=== PATIENT | male | born 1930 | race Caucasian/White ===

== ENCOUNTER 2016-10-14 12:03 | Inpatient (IN) | payer MEDICARE, BC ==
[~2016-10-14] VITALS: Ht 162.6 cm; Wt 83.8 kg
--- NOTE | ~2016-10-14 | HEMODYNAMI ---
PATIENT:MELANIE BARAJAS MEDICAL RECORD: [id number] : [birth year] LOCATION:[facility] D.2122 ADMISSION DATE: 10/14/16 Generatedon:10/15/201613:47 Patient name: MELANIE BARAJAS Patient #: [id number] SSN: DO B: 1930 Date of study: 10/15/2016 Page: Of Hemodynamic Procedure Report Patient Data Patient Demographics Procedure consent was obtained First Name: MELANIE Gender: Male Last Name: KARL : 1930 [facility] Initial: SALOMÓN Age: 86 year(s) Patient #: [id number] Race: Unknown Additional ID: [id number] Contact details [address]: [address] [place] [address] State: [place] City: [place] Zip code: [address] Past Medical History Allergies Allergen Reaction Date Comments Reported Other allergy 10/15/2016 see chart Admission Admission Data Admission Date: 10/14/2016 Admission Time: 12:03 Room #: 2122 Procedure Procedure Types Cath Procedure Diagnostic Procedure LHC LHC w/Coronaries w/Grafts PCI Procedure SVG-BMS/SAVANNAH Initial Miscellaneous Procedures Moderate Sedation up to 15 minutes Procedure Description Procedure Date Procedure Date: 10/15/2016 Procedure Start Time: 13:10 Procedure End Time: 13:43 Procedure Staff Name Function Fabián Villaseñor MD Performing Physician Genoveva Valdes RT Scrub Kirsten Greene RN Nurse Loly Rhodes RT Monitor Procedure Data Cath Procedure Fluoroscopy Diagnostic fluoroscopy Total fluoroscopy Time: time: 12.9 min 12.9 min Diagnostic fluoroscopy Total fluoroscopy dose: dose: 1903 mGy 1903 mGy Contrast Material Contrast Material Type Amount (ml) Isovue 300 158 Entry Location Entry Primary Successful Side Size Upsize Upsize Entry Closure Succes sful Closure Location (Fr) 1 (Fr) 2 (Fr) Remarks Device Remarks Femoral Right 5 Fr 6 Fr 7 Fr Exoseal artery Short Short Estimated blood loss: 10 ml Diagnostic catheters Device Type Used For End Catheter Placement Cordis 5Fr Pigtail Procedure Catheter (MP) Cordis 5Fr JL 4.0 Procedure Catheter (MP) Cordis 5Fr 3DRC Catheter Procedure (MP) Diagnostic Infinity 5Fr Procedure AR 2 MOD catheter Procedure Complications No complications Procedure Medications Medication Administration Route Dosage Oxygen NC 2 l/min Heparin Flush Bag added to field 2 bags (1000units/500ml NS) Lidocaine 2% added to field 20 Fentanyl I.V. 25 mcg Versed I.V. 0.5 mg Heparin Bolus I.V. 5000 units Plavix P.O. 75 mg Hemodynamics Rest Heart Rate: 75 (bpm) Snapshots Pre Cath Intra NCS Post Cath Vital Signs Time Heart Resp SPO2 NIBP (mmHg) Rhythm Pain Sedation Rate (ipm) (%) Status Level (bpm) 12:55:14 80 18 96 137/73(113) NSR 0 (11) 10(A) , No pain 12:59:34 85 20 96 132/69(106) NSR 0 (11) 10(A) , No pain 13:04:07 73 24 97 154/79(121) NSR 0 (11) 10(A) , No pain 13:08:41 70 17 96 146/71(110) NSR 0 (11) 9(A) , No pain 13:13:12 68 15 96 150/74(112) NSR 0 (11) 9(A) , No pain 13:17:40 79 20 96 143/74(113) NSR 0 (11) 9(A) , No pain 13:22:08 80 25 97 148/71(112) NSR 0 (11) 9(A) , No pain 13:26:37 82 26 96 135/69(103) NSR 0 (11) 9(A) , No pain 13:31:05 76 16 96 133/67(102) NSR 0 (11) 9(A) , No pain 13:35:31 75 14 96 138/66(106) NSR 0 (11) 9(A) , No pain 13:39:59 77 17 96 131/68(110) NSR 0 (11) 9(A) , No pain 13:44:22 71 17 97 141/75(110) NSR 0 (11) 9(A) , No pain Medications Time Medication Route Dose Verified Delivered Reason Notes Effectiveness by by 12:56:30 Oxygen NC 2 Kirsten Kirsten used for l/min Greene Greene armament aircraft mechanic RN 12:56:38 Heparin Flush added 2 Kirsten Kirsten used for Bag to bags Greene Greene procedure (1000units/500ml field RN RN NS) 12:56:46 Lidocaine 2% added 20ml Kirsten Kirsten used for to vial Greene Greene procedure field RN RN 13:08:41 Fentanyl I.V. 25 Kirsten Kirsten for sedation mcg Jc Greene RN RN 13:08:47 Versed I.V. 0.5 Kirsten Kirsten for sedation mg Greenealise Greene RN RN 13:19:52 Heparin Bolus I.V. 5000 Kirsten Kirsten for units Greene Greene anticoagulation RN RN 13:41:35 Plavix P.O. 75 mg Kirsten Kirsten for Greene Greene antiplatelet RN RN therapy Procedure Log Time Note 12:42:26 Diagnostic Cath status Elective 12:42:28 Kirsten Greene RN sent for patient. Start room use. 12:42:30 Time tracking: Regular hours 12:42:35 Plan of Care:Hemodynamics will remain stable., Cardiac rhythm will remain stable., Comfort level will be maintained., Respiratory function will remain adequate., Patient/ family verbilizes understanding of procedure., Procedure tolerated without complication., Recovers from procedure without complications.. 12:53:54 Patient received from Med II to [facility] 2 Alert and oriented. Tansferred to table in Supine position. 12:53:55 Warm blankets applied, and nickolas hugger turned on for patient comfort. 12:53:56 Correct patient and procedure confirmed by team. 12:53:57 Signed procedure consent form obtained from patient. 12:54:00 ECG and BP/O2 sat monitors applied to patient. 12:54:02 Vital chart was started 12:56:30 Oxygen 2 l/min NC was administered by Kirsten Greene RN; used for procedure; 12:56:38 Heparin Flush Bag (1000units/500ml NS) 2 bags added to field was administered by Kirsten Greene RN; used for procedure; 12:56:46 Lidocaine 2% 20ml vial added to field was administered by Kirsten Greene RN; used for procedure; 12:59:17 Baseline sample Acquired. 12:59:30 Full Disclosure recording started 12:59:36 H&P Date Dictated: 10/15/2016 Within 30 days and on chart.. 12:59:37 Pre-procedure instructions explained to patient. 12:59:39 Family in patients room. 12:59:41 Patient NPO since Midnight. 12:59:55 Patient allergic to Other allergysee chart 12:59:59 Is the patient allergic to Iodine/contrast media? No. 13:00:35 Snore? Yes 13:00:36 Sleep apnea? Yes 13:00:43 Patient diabetic? Yes. 13:00:45 If diabetic: On Metformin? No 13:00:50 Dentures? No ? 13:00:56 Patient pain scale 0/10 ?. 13:01:05 IV patent on arrival in left forearm with 0.9% NaCl at [facility]. 13:01:19 Lab results completed and on chart. 13:01:25 Right groin area was prepped with chlora-prep and draped in sterile fashion 13:01:27 Alarms reviewed by R. N. 13:01:28 Sharps counted by scrub and verified by R.N. 13:01:29 Physician paged 13:01:30 Physician arrived 13:01:31 --------ALL STOP TIME OUT------ 13:01:32 Final Timeout: patient, procedure, and site verified with staff and physician. All members of the team are in agreement. 13:01:35 Right groin site verified by team. 13:01:39 Sedation plan: IV Moderate Sedation Versed, Fentanyl 13:03:42 Use device set Femoral Dx 13:03:44 Acist Syringe opened to sterile field. 13:03:44 Bag Decanter opened to sterile field. 13:03:45 Medline Cath Pack opened to sterile field. 13:03:45 Terumo 5Fr Liberty Sheath opened to sterile field. 13:03:46 St Rony 260cm J .035 wire opened to sterile field. 13:03:47 Acist Hand Control opened to sterile field. 13:03:47 Acist Manifold opened to sterile field. 13:03:48 Diagnostic Infinity 5Fr Multipack catheter opened to sterile field. 13:03:49 Tegaderm 4 x 4 opened to sterile field. 13:06:30 Zero performed for pressure channel P1 13:08:41 Fentanyl 25 mcg I.V. was administered by Kirsten Greene RN; for sedation; 13:08:47 Versed 0.5 mg I.V. was administered by Kirsten Greene RN; for sedation; 13:09:59 Procedure started. 13:10:04 Local anesthetic to right femoral artery with Lidocaine 2% by Fabián Villaseñor MD.INITIAL ACCESS ONLY 13:10:15 A 5 Fr sheath was inserted into the Right Femoral artery 13:11:13 A Cordis 5Fr Pigtail Catheter (MP) was advanced over the wire and used for Procedure. 13:11:17 LV gram done using LIM 13:13:12 A Cordis 5Fr JL 4.0 Catheter (MP) was advanced over the wire and used for Procedure. 13:13:18 LCA angiography performed. 13:15:01 A Cordis 5Fr 3DRC Catheter (MP) was advanced over the wire and used for Procedure. 13:15:03 PAZ to LAD angiography performed. 13:15:10 RCA angiography performed. 13:15:45 Catheter removed. 13:15:55 A Diagnostic Infinity 5Fr AR 2 MOD catheter was advanced over the wire and used for Procedure. 13:17:22 SVG to Circ angiography performed. 13:18:15 NICHOLE to RCA 13:18:19 Merit BasixCompak Inflation Kit opened to sterile field. 13:18:21 Terumo 6Fr Liberty Sheath opened to sterile field. 13:18:22 Mckeon Whisper J 300cm 0.014 guide wire opened to sterile field. 13:18:42 Catheter removed. 13:18:51 Sheath upsized to a 6 Fr Short. 13:19:52 Heparin Bolus 5000 units I.V. was administered by Kirsten Greene RN; for anticoagulation; 13:20:11 6 Fr ART 4 SH guide catheter was inserted over the wire 13:20:17 Cloudadmin Runway 6Fr ART 4.0 SH guide catheter opened to sterile field. 13:20:31 J wire advanced. 13:23:01 Wire advanced across lesion. 13:25:33 Inflation number: 1 A Mozec Rx 3.0 x 20 balloon was prepped and advanced across the Aorta Right -> Mid CX, then inflated to 0 KEIRY for 0:00 (min:sec). 13:26:04 unable to cross exchanged for euphora 13:26:24 Inflation number: 2 The Mozec Rx 3.0 x 20 balloon was reinflated across the Aorta Right -> Mid CX, to 17 KEIRY for 0:08 (min:sec). 13:26:47 Balloon removed over the wire. 13:27:04 Inflation number: 3 A Euphora 1.5 x 15 Balloon was prepped and advanced across the Aorta Right -> Mid CX, then inflated to 21 KEIRY for 0:00 (min:sec). 13:27:10 unable to cross. 13:27:18 Balloon removed over the wire. 13:28:28 Guide catheter removed. 13:28:34 Guide Catheter removed. unable to cannulate vessel. 13:28:54 Sheath upsized to a 7 Fr Short. 13:29:15 Medtronic Launcher 7Fr AR 2.0 guide catheter opened to sterile field. 13:29:16 Terumo 7Fr Liberty Sheath opened to sterile field. 13:29:16 Bena Sci Choice PT Extra Support J 300cm .014 gu opened to sterile field. 13:29:23 7 Fr ? guide catheter was inserted over the wire 13:30:45 Bena Sci 7FR Runway ART 4.0 guide catheter opened to sterile field. 13:31:01 Guide catheter removed. 13:31:09 7 Fr ART4 guide catheter was inserted over the wire 13:31:16 choice wire advanced. 13:33:19 Inflation number: 4 The Euphora 1.5 x 15 Balloon was reinflated across the Aorta Right -> Mid CX, to 21 KEIRY for 0:03 (min:sec). 13:34:02 Balloon removed over the wire. 13:35:52 Inflation number: 3 The Mozec Rx 3.0 x 20 balloon was reinflated across the Aorta Right -> Mid CX, to 17 KEIRY for 0:07 (min:sec). 13:36:10 Inflation number: 4 The Mozec Rx 3.0 x 20 balloon was reinflated across the Aorta Right -> Mid CX, to 17 KEIRY for 0:04 (min:sec). 13:37:03 Inflation number: 5 The Mozec Rx 3.0 x 20 balloon was reinflated across the Aorta Right -> Mid CX, to 17 KEIRY for 0:07 (min:sec). 13:38:07 Balloon removed over the wire. 13:39:52 Inflation Number: 8 A Rosalia OTW 3.0 x 22 stent was prepped and advanced across the Aorta Right -> Mid CX. The stent was deployed at 17 KEIRY for 0:10 (min:sec). 13:40:08 Cordis 7Fr Exoseal opened to sterile field. 13:40:46 Sheath removed intact; hemostasis achieved with Exoseal to the Right Femoral artery. 13:40:50 Procedure ended.(Physican Out) 13:41:26 Fluoroscopy time 12.90 minutes. 13:41:35 Plavix 75 mg P.O. was administered by Kirsten Greene RN; for antiplatelet therapy; ::39 Fluoroscopy dose: 1903 mGy 13:41:39 Flurop Dose total: 1903 13:41:52 Contrast amount:Isovue 300 158ml. 13:41:55 Sharps counted by scrub and verified by R.N. 13:42:00 Insertion/operative site no bleeding no hematoma. 13:42:03 Post right femoral artery:stable 13:42:13 Post Procedure Pulses reassessed and unchanged 13:42:17 Post-procedure physical assessment completed. ASA score P 3 - A patient with severe systemic disease as per Fabián Villaseñor MD. 13:42:20 Post procedure rhythm: unchanged. 13:42:23 Estimated blood loss: 10 ml 13:42:25 Post procedure instruction explained to patient.Patient verbalizes understanding. 13:42:50 Procedure type changed to Cath procedure, Diagnostic procedure, LHC, LHC w/Coronaries w/Grafts, PCI procedure, SVG-BMS/SAVANNAH Initial, Miscellaneous Procedures, Moderate Sedation up to 15 minutes 13:42:52 Procedure and supply charges have been captured, reviewed, submitted and are correct. 13:43:20 Procedure Complication : No complications 13:43:23 Vital chart was stopped 13:43:29 See physician's report for complete and final results. 13:43:34 Report given to Pre/Post Procedure Room. 13:43:37 Patient transfered to Pre/Post Procedure Room with Bed. 13:43:39 Procedure ended. 13:43:39 Full Disclosure recording stopped 13:43:45 End room use (Document Last) 13:43:52 ACC-PCI Only Patient was given prescriptions, or instructed by Fabián Villaseñor MD to start/continue the following medications upon discharge: Plavix Intervention Summary Intervention Notes Time ActionType Lesion and Equipment Action# Pressure Duration Attributes Used 13:25:33 Inflate Aorta Right Mozec Rx 1 0 00:00 balloon -> Mid CX 3.0 x 20 balloon 13:26:24 Reinflate Aorta Right Mozec Rx 2 17 00:09 balloon -> Mid CX 3.0 x 20 balloon 13:27:04 Inflate Aorta Right Euphora 3 21 00:00 balloon -> Mid CX 1.5 x 15 Balloon 13:33:19 Reinflate Aorta Right Euphora 4 21 00:03 balloon -> Mid CX 1.5 x 15 Balloon 13:35:52 Reinflate Aorta Right Mozec Rx 3 17 00:07 balloon -> Mid CX 3.0 x 20 balloon 13:36:10 Reinflate Aorta Right Mozec Rx 4 17 00:04 balloon -> Mid CX 3.0 x 20 balloon 13:37:03 Reinflate Aorta Right Mozec Rx 5 17 00:07 balloon -> Mid CX 3.0 x 20 balloon 13:39:52 [address] stent Aorta Right Rosalia OTW 8 17 00:10 -> Mid CX 3.0 x 22 stent Device Usage Item Name Manufacture Quantity Catalog Number Hospital Part Current Mini mal Lot# / Charge Number Stock Stock Serial# Code Acist Acist 1 [id number] 054933 114950 20 Syringe Medical Systems Inc Bag Microtek 1 2002S 049546 06484 855688 5 Averail Inc. Medline Cardinal 1 [id number] 908341 78063 801656 5 Cath Pack Health Terumo 5Fr Terumo 1 [id number] 697585 642046 851551 [address] Rony St Rony 1 312085 119619 182511 357893 30 260cm J .035 wire Acist Hand Acist 1 39633 400243 113127 213003 5 Control Medical Systems Inc Acist Acist 1 97023 199662 482513 840245 5 Health Recovery Solutions Medical Systems Inc Diagnostic Cardinal 1 [id number] 965984 51263 064525 30 Infinity Health 5Fr Multipack catheter Tegaderm 4 3M 1 1626W 941502 080266 452182 5 x 4 Cordis 5Fr Cardinal 1 233637 5 Pigtail Health Catheter (MP) Cordis 5Fr Cardinal 1 184024 5 JL 4.0 Health Catheter (MP) Cordis 5Fr Cardinal 1 614356 5 3DRC Health Catheter (MP) Diagnostic Cardinal 1 [id number] 229850 095772 813843 20 Odersun Health 5Fr AR 2 MOD catheter Merit Merit 1 ML0603 376998 973412 262696 15 BasixCompak Medical Inflation Kit Terumo 6Fr Terumo 1 CGP214 723872 979792 288782 40 Liberty Sheath Mckeon Mckeon 1 [id number] 063287 669335 426076 5 Whisper J Vascular 300cm 0.014 guide wire Bena Sci Bena 1 [id number] 525515 986835 211685 [address] 6Fr Scientific ART 4.0 SH guide catheter Mozec Rx Cardinal 1 [id number] 717412 06544 503475 5 UMOA73 3.0 x 20 Health balloon Euphora 1.5 Medtronic 1 [id number] 518337 435342 177788 5 [id number] x 15 Balloon Medtronic Medtronic 1 [id number] 262929 504311 148008 0 Launcher 7Fr AR 2.0 guide catheter Terumo 7Fr Terumo 1 ATP880 839392 622878 853480 5 Liberty Sheath Bena Sci Bena 1 [id number] 189729 488654 428729 5 Choice PT Scientific Extra Support J 300cm .014 gu Bena Sci Bena 1 [id number] 022606 72837 853706 0 7FR Runway Scientific ART 4.0 guide catheter Benito OTW Medtronic 1 [id number] 731974 9798622 291308 5 [id number] 3.0 x 22 stent Cordis 7Fr Cardinal 1 EX700 475125 689562 071172 5 [facility] Health Signature Audit [place] Stage Time Signature Unsigned Intra-Procedure 10/15/2016 Loly Rhodes 1:47:23 PM RT(R) Signatures Monitor : Loly Rhodes Signature : RT Date : Time : [facility] [address] [place] [address]
--- NOTE | ~2016-10-14 | DS ---
PATIENT:MELANIE BARAJAS :[birth year] MEDICAL RECORD: [id number] DISCHARGE SUMMARY ADMISSION DATE: 10/14/16 DISCHARGE DATE: 10/17/16 DISCHARGE DIAGNOSES: 1. Angina. 2. Coronary artery disease. 3. Percutaneous transluminal coronary angioplasty stent vein graft to the left circumflex this admission. 4. Congestive heart failure, chronic systolic dysfunction. 5. Cardiomyopathy. HOSPITAL COURSE: Mr. Barajas presented with worsening angina, worsening heart failure symptomatology, found to have critical disease of a vein graft to the left circumflex, underwent successful PTCA stent of the vein graft to the left circumflex. He had an uneventful postop course. He was discharged home with the addition of Plavix to his medical regimen. Follow up with [facility] in 1 month. TRANSINT:[id number] Voice Confirmation ID: [id number] DOCUMENT ID: [id number] SYDNEY GARCIA MD CC: [id number] DICTATION DATE: 10/17/16 1157 BICYCLE REPAIRER: 10/17/162220 DIS IN 10/17/16 [facility] [address] [place] [address]
[2016-10-14 15:12] LABS: BASOPHILS 0.1 % (0-2); HEMATOCRIT 36.6 % (42.0-54.0); HEMOGLOBIN 11.4 g/dL (13.5-17.5); IMMATURE GRANULOCYTES 0.3 % (0-5); LYMPHOCYTES 8.1 % (15-50); MCH 25.1 pg (26.0-34.0); MCHC 31.1 g/dL (31.0-37.0); MCV 80.4 fL (80.0-100.0); MEAN PLATELET VOLUME 9.7 fL (7.4-10.4); MONOCYTES 7.5 % (2-11); PLATELET COUNT 130 10x3/uL (130-400); RBC 4.55 10x6/uL (4.20-6.10)
[2016-10-14 15:20] LABS: ANION GAP 8.1 mmol/L (8-16); CALCIUM 8.4 mg/dL (8.5-10.1); CARBON DIOXIDE 30.4 mmol/L (21.0-32.0); CREATININE - SERUM 1.5 mg/dL (0.6-1.3); POTASSIUM - SERUM 4.5 mmol/L (3.5-5.1)
--- NOTE | 2016-10-14 15:24 | NUR ---
SITED PT PIV TO LEFT FA 20 G X1 STICK. PAPER TAPE USED
[2016-10-14] MEDS ORDERED: LEVOTHYROXINE125 MCG PO (16:40)
[2016-10-14] MEDS ORDERED: CLARITIN 10 MG10 MG PO (16:41)
[2016-10-14] MEDS ORDERED: COZAAR50 MG PO (16:42)
[2016-10-14] MEDS ORDERED: BUMEX 1 MG TAB1 MG PO (16:42)
[2016-10-14] MEDS ORDERED: ZOCOR10 MG PO (16:44)
[2016-10-14] MEDS ORDERED: FLOMAX0.4 MG PO (16:45)
[2016-10-14] MEDS ORDERED: TOPROL XL25 MG PO (16:45)
[2016-10-14] MEDS ORDERED: IPRATROPIUM BR21 MCG NASAL (16:46)
[2016-10-14] MEDS ORDERED: LANOXIN125 MCG PO (16:49)
[2016-10-14] MEDS ORDERED: ATIVAN0.5 MG PO (16:50)
[2016-10-14] MEDS ORDERED: NORVASC5 MG PO (16:50)
[2016-10-14] MEDS ORDERED: PROTONIX20 MG PO (16:51)
[2016-10-14] MEDS ORDERED: BAYER CHEWABLE81 MG PO (16:52)
[2016-10-14] MEDS ORDERED: PROBIOTIC1 EAC1 PO (16:52)
[2016-10-14] MEDS ORDERED: FLUTICASONE PRO16 GM NASAL (16:52)
[2016-10-14] MEDS ORDERED: CENTRUM SILVER1 TA1 PO (16:53)
[2016-10-14] MEDS ORDERED: OPTIVE EYE DROP30 ML EACH EYE (16:54)
[2016-10-14 17:57] VITALS: BP 129/64; Ht 162.6 cm; Wt 83.8 kg
[2016-10-14 19:00] VITALS: BP 139/60
--- NOTE | 2016-10-14 20:10 | NUR ---
RESUMED CARE OF PT, LYING IN BED RESPIRATIONS EVEN AND UNLABORED ON 2LPM VIA NC. 74 SR ON TELEMETRY. LEFT FOREARM INFUSING DOBUTAMINE @ 5MCG/KG/MIN. PLAN OF CARE DISCUSSED. CALL LIGHT IN REACH. WILL CONTINUE TO MONITOR. SEE NURSE ASSESSMENT.
--- NOTE | 2016-10-15 01:21 | NUR ---
LYING IN BED WITH EYES CLOSED, CPAP ON. CALL LIGHT IN REACH.
[2016-10-15 04:00] VITALS: BP 113/47
[2016-10-15 05:35] LABS: BASOPHILS 0.2 % (0-2); EOSINOPHILS 2.8 % (0-7); HEMATOCRIT 35.4 % (42.0-54.0); HEMOGLOBIN 11.4 g/dL (13.5-17.5); IMMATURE GRANULOCYTES 0.3 % (0-5); LYMPHOCYTES 10.2 % (15-50); MCH 25.2 pg (26.0-34.0); MCHC 32.2 g/dL (31.0-37.0); MCV 78.3 fL (80.0-100.0); MEAN PLATELET VOLUME 9.1 fL (7.4-10.4); MONOCYTES 10.4 % (2-11); NEUTROPHILS 76.1 % (40-80); PLATELET COUNT 127 10x3/uL (130-400); RBC 4.52 10x6/uL (4.20-6.10); RDW 22.9 % (11.5-14.5); WBC 8.8 10x3/uL (4.8-10.8)
[2016-10-15 05:50] LABS: ANION GAP 9.5 mmol/L (8-16); CALCIUM 8.3 mg/dL (8.5-10.1); CARBON DIOXIDE 29.5 mmol/L (21.0-32.0); CREATININE - SERUM 1.2 mg/dL (0.6-1.3)
--- NOTE | 2016-10-15 07:30 | NUR ---
ASSESSMENT COMPLETED. O2 AT 2 L/M PER NC. TELEMERTY SHOWS SR 72. IV TO LEFT FA WITH DOBUTAMINE DRIP AT 12.5. DENIES ANY NEEDS. SR UP WITH CALL LIGHT IN REACH. WILL MONITOR
--- NOTE | 2016-10-15 07:56 | NUR ---
AAOX4 RESP UNLABORED DEDENIES ANY NEEDS AT THIS TIME NAD NOTED
[2016-10-15 08:00] VITALS: BP 140/64
[2016-10-15 12:00] VITALS: BP 126/56
--- NOTE | 2016-10-15 12:34 | NUR ---
PT PRE OPED FOR MANAGER COMMUNITY DEVELOPMENT
--- NOTE | 2016-10-15 12:41 | NUR ---
TO COUNSELOR AT LAW PER BED
--- NOTE | 2016-10-15 13:52 | HP ---
PATIENT: MELANIE BARAJAS MEDICAL RECORD: [id number] ACCOUNT: [id number] LOCATION:D. D.2121 : [birth year] ADMISSION DATE: 10/14/16 HISTORY AND PHYSICAL EXAMINATION DIAGNOSES: 1. Angina. 2. Congestive heart failure, chronic systolic dysfunction. 3. Cardiomyopathy. 4. Coronary artery disease. 5. Status post coronary bypass graft surgery. 6. Hypertension. 7. Aortic stenosis. HISTORY OF PRESENT ILLNESS: This is a gentleman who presents with increasing episodes of chest pain, chest discomfort compatible with angina, it is only been for the past 3 weeks he is so short of breath and he is now on oxygen. He has been told he had aortic stenosis in the past. Echocardiogram today reveals an ejection fraction of 20% to 25%. The aortic stenosis is only moderate. He has not been told he has a severe cardiomyopathy in the past. He has not had congestive heart failure in the past. He has not had cardiac intervention since his last bypass surgery. His last bypass surgery is in 1997. PHYSICAL EXAMINATION: GENERAL APPEARANCE: Well-nourished, well-developed, appears stated age. Level of distress, comfortable. PSYCHIATRIC: Mental status, alert, normal affect. Orientation, oriented to time, place and person. EYES: Lids and conjunctiva, noninjected. No discharge, no pallor. ENT: Lips, teeth, gums, normal dentition. Oropharynx, no cyanosis, no pallor. NECK: Carotid arteries, bilateral normal upstroke, no bruits, no thrills. JUGULAR VEINS: No jugular venous pressure or distention. CERVICAL LYMPH NODES: Nontender, nonenlarged. THYROID: Not enlarged. Nontender. No nodules. LUNGS: Bibasilar crackles compatible with pulmonary edema and congestive heart failure. CHEST: Normal curvature. No thoracic deformity. No chest wall tenderness. Percussion, resonant. Auscultation, clear. No wheezes, no rales, no rhonchi. CARDIOVASCULAR: Precordial exam, nondisplaced. No heaves or pericardial thrills. Rate and rhythm, regular. Heart sounds, normal S1, normal S2. No S3, no gallop, no rub. Systolic murmur, not heard. Diastolic murmur, not heard. EXTREMITIES: No cyanosis, no edema. Peripheral pulses, full and equal in all extremities, except as noted. No bruits appreciated. ABDOMEN: Soft, nondistended. Normal aorta. No bruit. Nontender. No masses. Liver, nontender, no hepatomegaly. Spleen, nontender, no splenomegaly. MUSCULOSKELETAL: No joint tenderness. No joint swelling. No erythema. NEUROLOGICAL: Normal gait, normal strength, normal tone. SKIN: Warm and dry. OVERALL IMPRESSION: New cardiomyopathy and congestive heart failure, most likely he has recurrent hemodynamically significant coronary artery disease and/or graft failure. We will proceed with inotropic therapy, IV Lasix and cardiac catheterization and hopefully transcatheter revascularization will improve his ejection fraction. HISTORY AND PHYSICAL [id number] MELANIE BARAJAS TRANSINT:[id number] Voice Confirmation ID: [id number] DOCUMENT ID: [id number] SYDNEY GARCIA MD at 1352 CC: [id number] DICTATION DATE: 10/14/16 165 SLAB CONDITIONER SUPERVISOR: 10/14/16 1711 ADM IN [facility] [address] [place] [address]
--- NOTE | 2016-10-15 13:52 | EC ---
PATIENT:MELANIE BARAJAS DATE OF SERVICE: 10/14/16 SEX: M MEDICAL RECORD: [id number] DATE OF : [birth year] LOCATION:D. D.212 AGE OF PATIENT: 86 ADMISSION DATE: 10/14/16 REFERRING PHYSICIAN: INTERPRETING PHYSICIAN: SYDNEY VILLASEÑOR MD ECHOCARDIOGRAM REPORT ECHO CHARGES 4 ECHO COMPLETE CLINICAL DIAGNOSIS: CHF ECHOCARDIOGRAPHIC MEASUREMENTS (adult normal given) AC root (d.<3.7cm) 4.4 cm LV Septum d (<1.2 cm> 1.7 cm Valve Excursion 1.4 cm LV Septum (systole) 1.8 cm Left Atria (s.<4.0cm> 3.9 cm LVPW d(<1.2cm) 1.5 cm RV (d.<2.3cm) 5.5 cm LVPW (sytole) 1.7 cm LV diastole(<5.6CM) 5.8 cm MV E-F(>70mm/sec) cm LV systole 4.6 cm LVOT Diameter 1.9 cm MV exc.(>10mm) 1.1 cm Est.ejection fraction (50-75%) % Pericardial Effusion N DOPPLER: LVIT cm/sec A 88.0 cm/sec E 117 cm/sec LA cm/sec RVSP mmHg LVOT 100 cm/sec AOP1/2T 378 m/s Asc. Ao 307 cm/sec RVOT cm/sec RA cm/sec PA cm/sec AV Gradient Peak 37.58mmHg AV Mean 22.89mmHg AV Area 0.80 cm MV Gradient Peak 5.77 mmHg MV Mean 2.04 mmHg MV Area cm COMMENTS: Family Practice Physician Assistant: Paolo REBOLLEDO Ratchet Setter: 1 Dr. Villaseñor TAPE# PACS DATE OF SERVICE: 10/14/2016 Echocardiogram FINDINGS: 1. Left ventricular chamber size is within normal limits. Left ventricular systolic function is markedly depressed. Overall ejection fraction is 20% to 25%. 2. Left atrium is within normal limits. Right atrium and right ventricle chamber sizes are moderately dilated. ECHOCARDIOGRAM REPORT [id number] MELANIE BARAJAS 3. Valvular structures: Aortic valve demonstrates moderate calcific aortic stenosis, valve area calculates to 0.8 cm-squared. There is a gradient of 37 mm across the valve. The remaining valvular structures have normal structure and motion. 4. Doppler interrogation elsewise reveals only mild mitral regurgitation. No other valvular insufficiency or stenosis. 5. No evidence of pericardial effusion or left ventricular thrombus. TRANSINT:[id number] Voice Confirmation ID: [id number] DOCUMENT ID: [id number] SYDNEY VILLASEÑOR MD at 1352 CC: [id number] DICTATION DATE: 10/14/16 1630 HUMAN CAPITAL ANALYST: 10/14/16 2134 ADM IN [facility] [place] [id number] [place] [address]
--- NOTE | 2016-10-15 14:07 | NUR ---
BACK FROM USED CAR SALES SUPERVISOR. SEDATED, BUT AROUSES EASILY. TELEMERTY SHOWS SR , V/S STABLE.RIGHT GROIN SOFT WITH DRSG DRY AND INTACK.PPP. CALL LIGHT IN REACH WITH SR UP. FAMILY AT BEDSIDE
[2016-10-15 16:00] VITALS: BP 159/70
--- NOTE | 2016-10-15 16:29 | NUR ---
RATIONALE FOR SCD'S EXPLAINED. REFUSED SCD'S
--- NOTE | 2016-10-15 18:18 | NUR ---
RIGHT GROIN SOFT WITH DRSG DRY AND INTACT. MAY GET UP NOW DENIES ANY NEEDS
[2016-10-15 20:00] VITALS: BP 131/60
--- NOTE | 2016-10-15 20:00 | NUR ---
INTRODUCED MYSELF TO PT PRIMARY RN FOR TODAYS SHIFT. PT A&O RESTING QUIETLY IN BED WITH AT BEDSIDE. PTS PIV IS SL BUT ORDERS ARE IN FOR A DOBUTAMINE DRIP PT REFUSED TO ALLOW ME TO CONNECT HIM AND STATES "I DONT THINK I NEED IT ANYMORE" PT STATES HE WILL WAIT UNTIL HE SEES IN THE MORNING AND CONNECT TO IT IF NEED BE. PT DENIES ANY CURRENT PAIN OR NEEDS. WILL CPOC.
[2016-10-16] VITALS: BP 120/58
--- NOTE | 2016-10-16 00:26 | NUR ---
PT RESTING QUIETLY IN BED WITH EYES CLOSED. RR NONLABORED. NO S/S OF DISTRESS OR ANY CURRENT NEEDS NOTED AT THIS TIME. CL IN REACH, BED IN LOWEST, SIDE RAILS X2. WILL CPOC.
[2016-10-16 04:00] VITALS: BP 124/60
--- NOTE | 2016-10-16 04:08 | NUR ---
PT RESTING QUIETLY WITH EYES CLOSED. RR NONLABORED. NO S/S OF DISTRESS OR ANY CURRENT NEEDS NOTED AT THIS TIME. WILL CPOC.
--- NOTE | 2016-10-16 07:20 | NUR ---
ASSESSMENT DONE. DENIES NEEDS.
[2016-10-16 08:00] VITALS: BP 129/56
--- NOTE | 2016-10-16 09:08 | NUR ---
UP TO BSC WITH CALL LIGHT IN REACH. AT BS. WILL CONT. PLAN OF CARE.
--- NOTE | 2016-10-16 10:47 | OP ---
PATIENT NAME: MELANIE BARAJAS MEDICAL RECORD: [id number] :[birth year] LOCATION:D.M2 D.2122 ADMISSION DATE:10/14/16 SURGEON: SYDNEY GARCIA MD DATE OF OPERATION: 10/15/2016 PROCEDURES: 1. PTCA stent vein graft to the left circumflex. 2. Left heart catheterization. 3. Selective coronary angiography. 4. Vein graft angiography. 5. PAZ angiography. 6. NICHOLE angiography. INDICATION: Angina and coronary artery disease, cardiomyopathy, congestive heart failure. PROCEDURE IN DETAIL: After informed consent was obtained and after detailed explanation of risks, benefits as well as alternative therapies, the patient elected to proceed with angiogram and angioplasty. The right femoral area was prepped and draped in normal sterile fashion. The right femoral artery was cannulated via modified Seldinger technique with placement of a 7-Tanzanian sheath. All catheters exchanged through this sheath. FINDINGS: The left ventriculogram was not done due to the dye conservation with renal insufficiency. SELECTIVE CORONARY ANGIOGRAPHY: 1. Left main showed no significant angiographic disease. 2. Left anterior descending is totally occluded. 3. Left circumflex first obtuse marginal system is totally occluded. 4. Right coronary is totally occluded. 5. PAZ to the LAD is widely patent. Distal LAD is diffusely diseased, but patent. 6. NICHOLE to the RCA is patent. The NICHOLE is patent. The distal RCA is diffusely diseased, but patent. 7. Vein graft to the circumflex is 99% stenosis. PTCA STENT OF THE VEIN GRAFT TO THE CIRCUMFLEX: The stent used was a 3.0 x 22 mm [place]. Result was 0% residual stenosis. OVERALL IMPRESSION: Successful percutaneous transluminal coronary angioplasty stent of the vein graft to the left circumflex going from 99% initial stenosis to 0% residual stenosis. TRANSINT:[id number] Voice Confirmation ID: [id number] DOCUMENT ID: [id number] SYDNEY GARCIA MD at 1047 CC: [id number] DICTATION DATE: 10/15/16 1412 INSTALLATION DRAFTER: 10/15/16 1744 ADM IN [facility] [address] [place] [address]
[2016-10-16 12:00] VITALS: BP 115/44
[2016-10-16 16:42] VITALS: BP 117/56
--- NOTE | 2016-10-16 17:53 | NUR ---
WITHOUT CHANGES OR DISTRESS NOTED AT THIS TIME. DENIES NEEDS. AT SIDE.
[2016-10-16 19:00] VITALS: BP 107/53
--- NOTE | 2016-10-16 22:19 | NUR ---
INITIAL ROUNDS COMPLETED AT 1920 . PT DENIED ANY DISCOMFORT. ASSESSMENT COMPLETED AT 201 0 HRS. VSS. SR WITH BBB PER CM HR 64. MURMUR NOTED. IV TO LFA SL. BRUISES NOTED TO BILAT ARMS. O2 1LNC. LUNGS DIMINISHED IN BASES BILAT. 1+ PEDAL EDEMA NOTED. R GROIN CLEAN, DRY AND INTACT. PM MEDS GIVEN. PT CURRENTLY IN RECLINER. DENIES ANY DISCOMFORT. WILL CONTINUE TO MONITOR.
[2016-10-17] VITALS: BP 137/66
--- NOTE | 2016-10-17 00:01 | NUR ---
ASSISTED PT TO BED. HOME CPAP IN USE. BED ALARM ON AND CALL LIGHT WITHIN REACH. AT BEDSIDE.
--- NOTE | 2016-10-17 02:21 | NUR ---
PT RESTING WITH EYES CLOSED. RESP EVEN AND REGULAR. HOME CPAP IN USE. SR UP X2, CALL LIGHT WITHIN REACH, BED ALARM, AT BEDSIDE.
[2016-10-17 04:00] VITALS: BP 130/58
--- NOTE | 2016-10-17 04:04 | NUR ---
PT RESTING WITH EYES CLOSED. RESP EVEN AND REGULAR. SR UP X2, CALL LIGHT WITHIN REACH, BED ALARM ON AND AT BEDSIDE.
[2016-10-17 05:25] LABS: BASOPHILS 0.2 % (0-2); EOSINOPHILS 3.1 % (0-7); HEMATOCRIT 36.4 % (42.0-54.0); HEMOGLOBIN 11.9 g/dL (13.5-17.5); IMMATURE GRANULOCYTES 0.4 % (0-5); LYMPHOCYTES 11.7 % (15-50); MCH 25.5 pg (26.0-34.0); MCHC 32.7 g/dL (31.0-37.0); MCV 78.1 fL (80.0-100.0); MEAN PLATELET VOLUME 9.2 fL (7.4-10.4); MONOCYTES 10.6 % (2-11); PLATELET COUNT 146 10x3/uL (130-400); RBC 4.66 10x6/uL (4.20-6.10); RDW 22.5 % (11.5-14.5); WBC 8.5 10x3/uL (4.8-10.8)
[2016-10-17 05:37] LABS: ANION GAP 12.1 mmol/L (8-16); CALCIUM 8.4 mg/dL (8.5-10.1); CARBON DIOXIDE 28.9 mmol/L (21.0-32.0); CREATININE - SERUM 1.2 mg/dL (0.6-1.3)
--- NOTE | 2016-10-17 06:33 | NUR ---
VSS THROUGHOUT NIGHT. SR PER CM. PT DENIED ANY DISCOMFORT. NEEDS MET; WILL CONTINUE TO MONITOR.
--- NOTE | 2016-10-17 07:22 | NUR ---
ASSESSMENT DONE. DENIES NEEDS.
[2016-10-17 08:00] VITALS: BP 128/55
--- NOTE | 2016-10-17 09:24 | NUR ---
RESTS IN BED. AT BS. CALL LIGHT IN REACH. WILL MONITOR NEEDS.
[2016-10-17] MEDS ORDERED: PLAVIX75 MG PO (14:05)
--- NOTE | 2016-10-17 14:07 | NUR ---
PATIENTS' REPORTS THAT DR GARCIA SPOKE WITH THE FAMILY PHARMACIST BY PHONE WHILE IN THE ROOM & THAT THE PLAVIX WILL BE READY WHEN THEY GET BACK TO [place] (HOME).
--- NOTE | 2016-10-17 16:15 | NUR ---
DC HOME PER PERSONAL CAR
== END 2016-10-17 16:16 | disposition home or self-care (01) | DRG 247 ==
LOC: D.M2 12:03
PROVIDERS: ADMIT Internal Medicine Interventional Cardiology
PROC: 027034Z Dilation of Coronary Artery, One Artery with Drug-eluting Intraluminal Device, Percutaneous Approach (ICD-10-PCS; principal; 2016-10-15)
PROC: 4A023N7 Measurement of Cardiac Sampling and Pressure, Left Heart, Percutaneous Approach (ICD-10-PCS; 2016-10-15)
PROC: B2111ZZ Fluoroscopy of Multiple Coronary Arteries using Low Osmolar Contrast (ICD-10-PCS; 2016-10-15)
PROC: B2151ZZ Fluoroscopy of Left Heart using Low Osmolar Contrast (ICD-10-PCS; 2016-10-15)
PROC: B2181ZZ Fluoroscopy of Left Internal Mammary Bypass Graft using Low Osmolar Contrast (ICD-10-PCS; 2016-10-15)
PROC: B2171ZZ Fluoroscopy of Right Internal Mammary Bypass Graft using Low Osmolar Contrast (ICD-10-PCS; 2016-10-15)
DX: I25.119 Atherosclerotic heart disease of native coronary artery with unspecified angina pectoris (principal); I50.22 Chronic systolic (congestive) heart failure; I11.0 Hypertensive heart disease with heart failure; Z95.1 Presence of aortocoronary bypass graft; I35.0 Nonrheumatic aortic (valve) stenosis; I42.9 Cardiomyopathy, unspecified

== ENCOUNTER 2017-08-26 12:24 | Inpatient (IN) | payer MEDICARE, BC ==
[~2017-08-26] VITALS: Ht 172.7 cm; Wt 67.8 kg
[~2017-08-26 12:24] MED LIST: ATIVAN0.5 MG PO; BAYER CHEWABLE81 MG PO; BUMEX 1 MG TAB1 MG PO; CENTRUM SILVER1 TA1 PO; CLARITIN 10 MG10 MG PO; COZAAR50 MG PO; FLOMAX0.4 MG PO; FLUTICASONE PRO16 GM NASAL; IPRATROPIUM BR21 MCG NASAL; LANOXIN125 MCG PO; LEVOTHYROXINE125 MCG PO; NORVASC5 MG PO; OPTIVE EYE DROP30 ML EACH EYE; PLAVIX75 MG PO; PROBIOTIC1 EAC1 PO; PROTONIX20 MG PO; TOPROL XL25 MG PO; ZOCOR10 MG PO
[2017-08-26 15:53] VITALS: BP 116/92
[2017-08-26 16:16] LABS: BASOPHILS 0.3 % (0-2); HEMATOCRIT 30.4 % (42.0-54.0); HEMOGLOBIN 9.8 g/dL (13.5-17.5); IMMATURE GRANULOCYTES 0.4 % (0-5); LYMPHOCYTES 12.1 % (15-50); MCH 27.1 pg (26.0-34.0); MCHC 32.2 g/dL (31.0-37.0); MCV 84.2 fL (80.0-100.0); MEAN PLATELET VOLUME 9.5 fL (7.4-10.4); MONOCYTES 9.6 % (2-11); NEUTROPHILS 74.6 % (40-80); PLATELET COUNT 130 10x3/uL (130-400); RBC 3.61 10x6/uL (4.20-6.10); RDW 23.8 % (11.5-14.5); WBC 7.9 10x3/uL (4.8-10.8)
[2017-08-26 16:34] LABS: ALBUMIN 2.9 g/dL (3.4-5.0); ALKALINE PHOSPHATASE 108 U/L (46-116); ALT (SGPT) 21 U/L (10-68); BILIRUBIN - TOTAL 0.73 mg/dL (0.2-1.3); CALC OSMOLALITY 271 mosm/kg (275-300); CALCIUM 8.8 mg/dL (8.5-10.1); CARBON DIOXIDE 32.3 mmol/L (21.0-32.0); CHLORIDE - SERUM 98 mmol/L (98-107); GLUCOSE 119 mg/dL (74-106); POTASSIUM - SERUM 3.9 mmol/L (3.5-5.1); PROTEIN - SERUM 6.7 g/dL (6.4-8.2); SODIUM 133 mmol/L (136-145); UREA NITROGEN 27 mg/dL (7-18); eGFR NON AFRICAN AMERICAN 75 mL/min (90-120)
[2017-08-26 17:21] VITALS: BP 116/92; BMI 24.5
[2017-08-26 19:47] LABS: APPEARANCE CLEAR (CLEAR); BILIRUBIN 1+ (NEGATIVE); COLOR YELLOW (YELLOW); GLUCOSE NEGATIVE (NEGATIVE); KETONE NEGATIVE (NEGATIVE); NITRITE NEGATIVE (NEGATIVE); PROTEIN NEGATIVE (NEGATIVE); SPECIFIC GRAVITY 1.005 (1.005-1.020)
[2017-08-26 19:49] LABS: BACTERIA MODERATE /hpf (NONE SEEN); RED CELLS - URINE 0-5 /hpf (0-5); WHITE CELLS - URINE 0-5 /hpf (0-5)
[2017-08-26 20:00] VITALS: BP 133/51
[2017-08-27 00:35] LABS: HEMATOCRIT 31.5 % (42.0-54.0); HEMOGLOBIN 10.1 g/dL (13.5-17.5)
[2017-08-27 03:43] VITALS: BP 137/51; BP 152/57
[2017-08-27 05:41] LABS: BASOPHILS 0.3 % (0-2); HEMATOCRIT 29.9 % (42.0-54.0); HEMOGLOBIN 9.5 g/dL (13.5-17.5); IMMATURE GRANULOCYTES 0.5 % (0-5); LYMPHOCYTES 14.6 % (15-50); MCH 26.6 pg (26.0-34.0); MCHC 31.8 g/dL (31.0-37.0); MCV 83.8 fL (80.0-100.0); MEAN PLATELET VOLUME 9.6 fL (7.4-10.4); MONOCYTES 10.3 % (2-11); NEUTROPHILS 69.3 % (40-80); PLATELET COUNT 131 10x3/uL (130-400); RBC 3.57 10x6/uL (4.20-6.10); RDW 23.6 % (11.5-14.5); WBC 6.6 10x3/uL (4.8-10.8)
[2017-08-27 06:05] LABS: INR 1.22 (0.85-1.17)
[2017-08-27 06:22] LABS: ALBUMIN 2.7 g/dL (3.4-5.0); ALKALINE PHOSPHATASE 101 U/L (46-116); ALT (SGPT) 23 U/L (10-68); BILIRUBIN - TOTAL 0.82 mg/dL (0.2-1.3); CALC OSMOLALITY 266 mosm/kg (275-300); CALCIUM 8.5 mg/dL (8.5-10.1); CARBON DIOXIDE 31.7 mmol/L (21.0-32.0); CHLORIDE - SERUM 99 mmol/L (98-107); GLUCOSE 83 mg/dL (74-106); POTASSIUM - SERUM 3.9 mmol/L (3.5-5.1); PROTEIN - SERUM 6.3 g/dL (6.4-8.2); SODIUM 133 mmol/L (136-145); eGFR NON AFRICAN AMERICAN 75 mL/min (90-120)
[2017-08-27 06:23] LABS: UREA NITROGEN 17 mg/dL (7-18)
[2017-08-27 08:13] VITALS: BP 152/54
[2017-08-27 09:57] VITALS: Ht 172.7 cm; Wt 67.8 kg
[2017-08-27 12:33] VITALS: BP 152/61
[2017-08-27] MEDS ORDERED: PAZEO2.5 ML (15:52)
[2017-08-27 16:08] LABS: HEMATOCRIT 31.3 % (42.0-54.0)
[2017-08-27 16:10] VITALS: BP 135/52
[2017-08-27 19:36] VITALS: BP 104/45
[2017-08-27 23:26] VITALS: BP 141/57
[2017-08-28 01:18] LABS: HEMATOCRIT 30.7 % (42.0-54.0); HEMOGLOBIN 9.9 g/dL (13.5-17.5)
[2017-08-28 04:00] VITALS: BP 109/46
[2017-08-28 05:51] LABS: BASOPHILS 0.3 % (0-2); EOSINOPHILS 4.9 % (0-7); HEMATOCRIT 30.1 % (42.0-54.0); HEMOGLOBIN 9.8 g/dL (13.5-17.5); IMMATURE GRANULOCYTES 0.3 % (0-5); LYMPHOCYTES 15.2 % (15-50); MCH 27.5 pg (26.0-34.0); MCHC 32.6 g/dL (31.0-37.0); MCV 84.3 fL (80.0-100.0); MEAN PLATELET VOLUME 9.6 fL (7.4-10.4); MONOCYTES 10.6 % (2-11); NEUTROPHILS 68.7 % (40-80); PLATELET COUNT 136 10x3/uL (130-400); RBC 3.57 10x6/uL (4.20-6.10); RDW 23.4 % (11.5-14.5); WBC 6.7 10x3/uL (4.8-10.8)
[2017-08-28 06:08] LABS: ALBUMIN 2.6 g/dL (3.4-5.0); ALKALINE PHOSPHATASE 102 U/L (46-116); ALT (SGPT) 19 U/L (10-68); BILIRUBIN - TOTAL 0.92 mg/dL (0.2-1.3); CALC OSMOLALITY 264 mosm/kg (275-300); CALCIUM 8.5 mg/dL (8.5-10.1); CARBON DIOXIDE 31.9 mmol/L (21.0-32.0); CHLORIDE - SERUM 100 mmol/L (98-107); GLUCOSE 83 mg/dL (74-106); POTASSIUM - SERUM 3.7 mmol/L (3.5-5.1); PROTEIN - SERUM 6.2 g/dL (6.4-8.2); SODIUM 133 mmol/L (136-145); UREA NITROGEN 13 mg/dL (7-18); eGFR NON AFRICAN AMERICAN 75 mL/min (90-120)
[2017-08-28 08:05] VITALS: BP 126/50
[2017-08-28 12:09] VITALS: BP 145/55
[2017-08-28 16:11] LABS: HEMATOCRIT 33.6 % (42.0-54.0); HEMOGLOBIN 10.6 g/dL (13.5-17.5)
[2017-08-28 19:47] VITALS: BP 141/71
[2017-08-28 23:37] VITALS: BP 146/64
[2017-08-29 05:12] LABS: BASOPHILS 0.4 % (0-2); EOSINOPHILS 3.2 % (0-7); HEMATOCRIT 32.8 % (42.0-54.0); HEMOGLOBIN 10.7 g/dL (13.5-17.5); IMMATURE GRANULOCYTES 0.4 % (0-5); LYMPHOCYTES 10.8 % (15-50); MCH 27.4 pg (26.0-34.0); MCHC 32.6 g/dL (31.0-37.0); MCV 83.9 fL (80.0-100.0); MEAN PLATELET VOLUME 9.4 fL (7.4-10.4); MONOCYTES 9.3 % (2-11); NEUTROPHILS 75.9 % (40-80); PLATELET COUNT 151 10x3/uL (130-400); RBC 3.91 10x6/uL (4.20-6.10); RDW 23.4 % (11.5-14.5)
[2017-08-29 05:22] LABS: WBC 8.5 10x3/uL (4.8-10.8)
[2017-08-29 05:45] LABS: ALBUMIN 2.8 g/dL (3.4-5.0); BILIRUBIN - TOTAL 0.97 mg/dL (0.2-1.3); CALCIUM 8.4 mg/dL (8.5-10.1); CARBON DIOXIDE 30.6 mmol/L (21.0-32.0); CREATININE - SERUM 1.1 mg/dL (0.6-1.3); POTASSIUM - SERUM 3.6 mmol/L (3.5-5.1); PROTEIN - SERUM 6.8 g/dL (6.4-8.2)
[2017-08-29 08:35] VITALS: BP 127/59
[2017-08-29 13:59] VITALS: BP 129/59
[2017-08-29 21:09] VITALS: BP 125/47
[2017-08-30 03:39] VITALS: BP 135/65
[2017-08-30 05:38] LABS: BASOPHILS 0.3 % (0-2); EOSINOPHILS 6.5 % (0-7); HEMOGLOBIN 10.1 g/dL (13.5-17.5); IMMATURE GRANULOCYTES 0.5 % (0-5); MCH 26.9 pg (26.0-34.0); MCHC 32.6 g/dL (31.0-37.0); MCV 82.4 fL (80.0-100.0); MEAN PLATELET VOLUME 9.6 fL (7.4-10.4); MONOCYTES 9.2 % (2-11); NEUTROPHILS 70.5 % (40-80); PLATELET COUNT 145 10x3/uL (130-400); RBC 3.76 10x6/uL (4.20-6.10); WBC 7.6 10x3/uL (4.8-10.8)
[2017-08-30 06:06] LABS: ALBUMIN 2.6 g/dL (3.4-5.0); ANION GAP 6.2 mmol/L (8-16); BILIRUBIN - TOTAL 0.97 mg/dL (0.2-1.3); CALCIUM 8.5 mg/dL (8.5-10.1); CARBON DIOXIDE 32.5 mmol/L (21.0-32.0); CREATININE - SERUM 1.1 mg/dL (0.6-1.3); POTASSIUM - SERUM 3.7 mmol/L (3.5-5.1); PROTEIN - SERUM 6.4 g/dL (6.4-8.2)
[2017-08-30 08:37] VITALS: BP 128/62
[2017-08-30] MEDS ORDERED: BETAPACE 80 MG80 MG PO (12:17)
== END 2017-08-30 19:49 | disposition home health service (06) | DRG 393 ==
LOC: D.SDCHOLD 12:24 → D.MS 15:36
PROVIDERS: Family Medicine; Internal Medicine Gastroenterology
PROC: 0DB68ZX Excision of Stomach, Via Natural or Artificial Opening Endoscopic, Diagnostic (ICD-10-PCS; 2017-08-28)
PROC: 0D758ZZ Dilation of Esophagus, Via Natural or Artificial Opening Endoscopic (ICD-10-PCS; 2017-08-28)
PROC: 0DJD8ZZ Inspection of Lower Intestinal Tract, Via Natural or Artificial Opening Endoscopic (ICD-10-PCS; 2017-08-28)
PROC: 0DB38ZX Excision of Lower Esophagus, Via Natural or Artificial Opening Endoscopic, Diagnostic (ICD-10-PCS; principal; 2017-08-28 11:30)
DX: K63.5 Polyp of colon (principal); K57.33 Diverticulitis of large intestine without perforation or abscess with bleeding; D62 Acute posthemorrhagic anemia; K22.5 Diverticulum of esophagus, acquired; R13.19 Other dysphagia; K62.3 Rectal prolapse; K62.1 Rectal polyp; K29.60 Other gastritis without bleeding; G47.33 Obstructive sleep apnea (adult) (pediatric); I10 Essential (primary) hypertension; E78.5 Hyperlipidemia, unspecified; I25.10 Atherosclerotic heart disease of native coronary artery without angina pectoris; I48.0 Paroxysmal atrial fibrillation; E11.9 Type 2 diabetes mellitus without complications; I35.0 Nonrheumatic aortic (valve) stenosis

== ENCOUNTER 2017-11-04 11:31 | Inpatient (IN) | payer MEDICARE, BC ==
[~2017-11-04] VITALS: Ht 172.7 cm; Wt 72.6 kg
--- NOTE | ~2017-11-04 | HP ---
PATIENT: MELANIE BARAJAS MEDICAL RECORD: [id number] ACCOUNT: [id number] LOCATION:.[facility]2114 : [birth year] ADMISSION DATE: 11/08/17 PCP: No PCP HISTORY AND PHYSICAL EXAMINATION ADMITTING DIAGNOSES: 1. Colon polyps for colonoscopy and polypectomy. 2. Anemia. 3. Gastrointestinal blood loss. 4. Cardiomyopathy. 5. Congestive heart failure, chronic systolic dysfunction. 6. Coronary artery disease. 7. Paroxysmal atrial fibrillation. 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 He is set for colonoscopy and possible polypectomy. He does have a cardiomyopathy, ejection fraction in the 30% range, coronary artery disease, but this has been stable from ischemic standpoint. No anginal symptomatology. Last cardiac intervention was approximately a year ago. He does have atrial fibrillation. This is controlled with digoxin and metoprolol, else castillo he is on losartan and simvastatin from a cardiac standpoint as well as Betapace. PHYSICAL EXAMINATION: GENERAL APPEARANCE: Well-nourished, well-developed, appears stated age. Level of distress, comfortable. PSYCHIATRIC: Mental status, alert, normal affect. Orientation, oriented to time, place and person. EYES: Lids and conjunctiva, noninjected. No discharge, no pallor. ENT: Lips, teeth, gums, normal dentition. Oropharynx, no cyanosis, no pallor. NECK: Carotid arteries, bilateral normal upstroke, no bruits, no thrills. JUGULAR VEINS: No jugular venous pressure or distention. CERVICAL LYMPH NODES: Nontender, nonenlarged. THYROID: Not enlarged. Nontender. No nodules. LUNGS: Respiratory effort, unlabored. CHEST: Normal curvature. No thoracic deformity. No chest wall tenderness. Percussion, resonant. Auscultation, clear. No wheezes, no rales, no rhonchi. CARDIOVASCULAR: Precordial exam, nondisplaced. No heaves or pericardial thrills. Rate and rhythm, regular. Heart sounds, normal S1, normal S2. No S3, no gallop, no rub. Systolic murmur, not heard. Diastolic murmur, not heard. EXTREMITIES: No cyanosis, no edema. Peripheral pulses, full and equal in all extremities, except as noted. No bruits appreciated. ABDOMEN: Soft, nondistended. Normal aorta. No bruit. Nontender. No masses. Liver, nontender, no hepatomegaly. Spleen, nontender, no splenomegaly. MUSCULOSKELETAL: No joint tenderness. No joint swelling. No erythema. NEUROLOGICAL: Normal gait, normal strength, normal tone. SKIN: Warm and dry. OVERALL IMPRESSION: 1. Ischemic heart disease, stable with no recurrent angina, no EKG changes. 2. Dysrhythmia, stable. No atrial fibrillation. On the sotalol, digoxin. 3. Congestive heart failure. He does have chronic systolic dysfunction. He has low level congestive heart failure with bowel prep and the fluids. We will HISTORY AND PHYSICAL [id number] MELANIE BARAJAS start dobutamine therapy. 4. Anemia from a cardiac standpoint. It will be better for him to have transfusion and resolve the anemia prior to the stress of the colonoscopy. We will give him 2 units of blood due to the anemia with 40 mg of Lasix in between units. 5. Hypertension, controlled on current medications. 6. Hyperlipidemia, controlled on current medications. TRANSINT:[id number] Voice Confirmation ID: [id number] DOCUMENT ID: [id number] SYDNEY GARCIA MD at 1823 CC: [id number] DICTATION DATE: 11/07/17 1559 PODIATRY PROFESSOR: 11/07/17 1640 [facility] [address] [place] [address]
--- NOTE | ~2017-11-04 | OP ---
PATIENT NAME: MELANIE BARAJAS MEDICAL RECORD: [id number] :[birth year] LOCATION:D.M2 D.2114 ADMISSION DATE:11/08/17 SURGEON: JUVENAL HALL MD DATE OF OPERATION: 11/08/2017 PREOPERATIVE DIAGNOSIS: Complex rectal polyp at 10 cm. POSTOPERATIVE DIAGNOSIS: Complex rectal polyp at 10 cm. PROCEDURE: Flexible proctoscopy with endoscopic mucosal resection. SURGEON: Juvenal Hall MD BIOLOGICAL SCIENCES PROFESSOR: None. BLOOD LOSS: Minimal. ANESTHESIA: General. COMPLICATIONS: None. The risks, possible complications, and alternatives to the procedure were explained to the patient. He elects to proceed. OPERATIVE COURSE: The patient was conveyed to the operating room electively on 11/08/2017. General anesthesia was induced by the anesthesia staff. The patient was placed in the Carranza position. A digital rectal examination was performed. A colonoscope was inserted through the anus. It was easily advanced to the top of the rectum. The polyp was easily identifiable. It was somewhat pedunculated. I advanced a sclerotherapy needle. I injected epinephrine at the base of the polyp to prevent post-polypectomy bleeding. I then injected Eleview to get the polyp to lift up away from the rectal wall. I then advanced the snare. I placed a snare around the base of the polyp. Utilizing the coagulation setting and then the cut setting, I was able to perform the polypectomy. I then took the argon plasma agent licensing clerk and utilizing the right colon setting in the forced mode, I ablated the base where the polyp had grown away from the rectal wall. It appeared that the entire polyp was removed with the snare. The polyp was grasped with endoscopic retrieval net and was withdrawn out through the anus. The patient was then extubated and conveyed to post-anesthesia care unit where he was in stable condition. I will see him in my office in 2 weeks. TRANSINT:[id number] Voice Confirmation ID: [id number] DOCUMENT ID: [id number] CC: Pasquale Acosta OPERATIVE REPORT [id number] MELANIE BARAJAS ROBERT MD at 1327 CC: MATI ROY MD and SYDNEY GARCIA [id number] DICTATION DATE: 11/08/17 1547 INTERNET E COMMERCE SPECIALIST: 11/08/17 1606 ADM IN [facility] [address] [place] [address]
[~2017-11-04 11:31] MED LIST changes: +BETAPACE 80 MG80 MG PO; +PAZEO2.5 ML
[2017-11-06 17:19] VITALS: BP 153/57; BMI 24.3
[2017-11-06 18:24] LABS: APPEARANCE CLEAR (CLEAR); BILIRUBIN NEGATIVE (NEGATIVE); COLOR YELLOW (YELLOW); GLUCOSE NEGATIVE (NEGATIVE); KETONE NEGATIVE (NEGATIVE); NITRITE NEGATIVE (NEGATIVE); PROTEIN NEGATIVE (NEGATIVE); SPECIFIC GRAVITY 1.005 (1.005-1.020); UROBILINOGEN NORMAL (NORMAL)
[2017-11-06 21:17] VITALS: BP 111/42
[2017-11-07 01:32] VITALS: BP 116/41
[2017-11-07 05:52] VITALS: BP 124/37
[2017-11-07 08:38] VITALS: BP 141/50
[2017-11-07 10:38] LABS: BASOPHILS 0.2 % (0-2); EOSINOPHILS 2.1 % (0-7); HEMATOCRIT 28.8 % (42.0-54.0); HEMOGLOBIN 9.1 g/dL (13.5-17.5); IMMATURE GRANULOCYTES 0.4 % (0-5); LYMPHOCYTES 8.5 % (15-50); MCH 26.6 pg (26.0-34.0); MCHC 31.6 g/dL (31.0-37.0); MCV 84.2 fL (80.0-100.0); MEAN PLATELET VOLUME 9.4 fL (7.4-10.4); MONOCYTES 8.8 % (2-11); RBC 3.42 10x6/uL (4.20-6.10); RDW 23.6 % (11.5-14.5); WBC 9.5 10x3/uL (4.8-10.8)
[2017-11-07 10:41] LABS: PLATELET COUNT 99 10x3/uL (130-400)
[2017-11-07 10:49] LABS: ANION GAP 9.3 mmol/L (8-16); CALCIUM 8.6 mg/dL (8.5-10.1); CARBON DIOXIDE 30.6 mmol/L (21.0-32.0); CREATININE - SERUM 1.2 mg/dL (0.6-1.3); POTASSIUM - SERUM 3.9 mmol/L (3.5-5.1)
[2017-11-07 10:55] LABS: INR 1.27 (0.85-1.17); PROTIME 15.5 SECONDS (11.6-15.0)
[2017-11-07 11:48] VITALS: BP 133/49
[2017-11-07 13:25] VITALS: Ht 172.7 cm; Wt 72.6 kg
[2017-11-07 15:56] VITALS: BP 153/41
[2017-11-07 21:53] VITALS: BP 143/53
[2017-11-08 05:31] LABS: BASOPHILS 0.3 % (0-2); EOSINOPHILS 2.5 % (0-7); IMMATURE GRANULOCYTES 0.4 % (0-5); LYMPHOCYTES 10.1 % (15-50); MCH 27.6 pg (26.0-34.0); MCV 83.6 fL (80.0-100.0); MEAN PLATELET VOLUME 9.8 fL (7.4-10.4); MONOCYTES 9.9 % (2-11); NEUTROPHILS 76.8 % (40-80); PLATELET COUNT 112 10x3/uL (130-400); RDW 22.4 % (11.5-14.5); WBC 7.9 10x3/uL (4.8-10.8)
[2017-11-08 05:51] LABS: HEMATOCRIT 35.2 % (42.0-54.0); HEMOGLOBIN 11.6 g/dL (13.5-17.5); RBC 4.21 10x6/uL (4.20-6.10)
[2017-11-08 06:26] LABS: ALBUMIN 3.3 g/dL (3.4-5.0); ALKALINE PHOSPHATASE 90 U/L (46-116); ALT (SGPT) 21 U/L (10-68); BILIRUBIN - TOTAL 1.49 mg/dL (0.2-1.3); CALC OSMOLALITY 276 mosm/kg (275-300); CALCIUM 8.7 mg/dL (8.5-10.1); CARBON DIOXIDE 28.8 mmol/L (21.0-32.0); CHLORIDE - SERUM 97 mmol/L (98-107); CREATININE - SERUM 0.9 mg/dL (0.6-1.3); GLUCOSE 104 mg/dL (74-106); POTASSIUM - SERUM 3.5 mmol/L (3.5-5.1); PROTEIN - SERUM 7.4 g/dL (6.4-8.2); SODIUM 138 mmol/L (136-145); UREA NITROGEN 16 mg/dL (7-18); eGFR NON AFRICAN AMERICAN 84 mL/min (90-120)
[2017-11-08 06:56] VITALS: BP 146/51
[2017-11-08 11:23] VITALS: BP 97/46
[2017-11-08 16:24] VITALS: BP 155/52
[2017-11-08 23:50] VITALS: BP 130/44
[2017-11-09 06:38] LABS: BASOPHILS 0.1 % (0-2); EOSINOPHILS 0.6 % (0-7); HEMATOCRIT 34.3 % (42.0-54.0); HEMOGLOBIN 11.1 g/dL (13.5-17.5); IMMATURE GRANULOCYTES 0.2 % (0-5); LYMPHOCYTES 6.7 % (15-50); MCH 27.2 pg (26.0-34.0); MCHC 32.4 g/dL (31.0-37.0); MCV 84.1 fL (80.0-100.0); MEAN PLATELET VOLUME 10.3 fL (7.4-10.4); MONOCYTES 7.3 % (2-11); NEUTROPHILS 85.1 % (40-80); RBC 4.08 10x6/uL (4.20-6.10); RDW 22.2 % (11.5-14.5)
[2017-11-09 06:40] LABS: PLATELET COUNT 140 10x3/uL (130-400); WBC 12.5 10x3/uL (4.8-10.8)
[2017-11-09 06:52] LABS: CALC OSMOLALITY 266 mosm/kg (275-300); CALCIUM 8.5 mg/dL (8.5-10.1); CARBON DIOXIDE 31.8 mmol/L (21.0-32.0); CHLORIDE - SERUM 95 mmol/L (98-107); CREATININE - SERUM 0.9 mg/dL (0.6-1.3); GLUCOSE 77 mg/dL (74-106); POTASSIUM - SERUM 3.3 mmol/L (3.5-5.1); SODIUM 134 mmol/L (136-145); UREA NITROGEN 13 mg/dL (7-18); eGFR NON AFRICAN AMERICAN 84 mL/min (90-120)
[2017-11-09 07:09] VITALS: BP 146/53
[2017-11-09 09:04] VITALS: BP 127/41
[2017-11-09 11:26] VITALS: BP 122/48
[2017-11-09 15:47] VITALS: BP 125/51
[2017-11-09 22:05] VITALS: BP 101/57
[2017-11-10 02:00] VITALS: BP 140/57
[2017-11-10 05:22] LABS: BASOPHILS 0.2 % (0-2); EOSINOPHILS 2.9 % (0-7); HEMATOCRIT 32.2 % (42.0-54.0); HEMOGLOBIN 10.6 g/dL (13.5-17.5); IMMATURE GRANULOCYTES 0.4 % (0-5); LYMPHOCYTES 10.7 % (15-50); MCH 27.2 pg (26.0-34.0); MCHC 32.9 g/dL (31.0-37.0); MCV 82.6 fL (80.0-100.0); MEAN PLATELET VOLUME 9.8 fL (7.4-10.4); MONOCYTES 9.8 % (2-11); PLATELET COUNT 125 10x3/uL (130-400); RDW 21.9 % (11.5-14.5)
[2017-11-10 05:48] LABS: CALCIUM 8.2 mg/dL (8.5-10.1); CARBON DIOXIDE 30.5 mmol/L (21.0-32.0); CREATININE - SERUM 1.1 mg/dL (0.6-1.3); POTASSIUM - SERUM 3.5 mmol/L (3.5-5.1)
[2017-11-10 06:16] VITALS: BP 137/53
[2017-11-10 08:39] VITALS: BP 114/50
[2017-11-10 10:47] VITALS: BP 104/54
[2017-11-10] MEDS ORDERED: FLAGYL500 MG PO (13:09)
== END 2017-11-10 15:43 | disposition home health service (06) | DRG 394 ==
LOC: D.SDCHOLD 11:31 → D.M2 11-06 15:43 → OBSVTIME 11-06 15:43 → D.M2 11-08 08:44 → D.SDCHOLD 11-08 08:44 → D.M2 11-08 13:50
PROVIDERS: Internal Medicine Gastroenterology; Internal Medicine Interventional Cardiology; Surgery
PROC: 0DBN8ZZ Excision of Sigmoid Colon, Via Natural or Artificial Opening Endoscopic (ICD-10-PCS; 2017-11-08)
PROC: 0DBQ8ZZ Excision of Anus, Via Natural or Artificial Opening Endoscopic (ICD-10-PCS; 2017-11-08)
PROC: 0DBL8ZZ Excision of Transverse Colon, Via Natural or Artificial Opening Endoscopic (ICD-10-PCS; 2017-11-08)
PROC: 0DBM8ZZ Excision of Descending Colon, Via Natural or Artificial Opening Endoscopic (ICD-10-PCS; principal; 2017-11-08 07:00)
DX: D12.8 Benign neoplasm of rectum (principal); D62 Acute posthemorrhagic anemia; I42.9 Cardiomyopathy, unspecified; I50.22 Chronic systolic (congestive) heart failure; D12.5 Benign neoplasm of sigmoid colon; I11.0 Hypertensive heart disease with heart failure; I25.10 Atherosclerotic heart disease of native coronary artery without angina pectoris; I48.0 Paroxysmal atrial fibrillation; E78.5 Hyperlipidemia, unspecified; K57.90 Diverticulosis of intestine, part unspecified, without perforation or abscess without bleeding; K62.3 Rectal prolapse

== ENCOUNTER 2017-12-27 19:34 | Inpatient (IN) | payer MEDICARE, BC ==
[~2017-12-27] VITALS: Ht 172.7 cm; Wt 72.6 kg
--- NOTE | ~2017-12-27 | MORECARE ---
CASE MANAGEMENT DISCHARGE SUMMARY PATIENT: MELANIE BARAJAS UNIT: [id number] ADM DATE: 12/27/17 AGE: 87 : [birth year] SEX: M ROOM/BED: D.2133 AUTHOR: MCKENZIEDOC PHYSICIAN: REFERRING PHYSICIAN: SYDNEY GARCIA MD DATE OF SERVICE: 12/30/17 Discharge Plan Patient Name: MELANIE BARAJAS Facility: [facility]:[place] : 1930 Planned Disposition: Hospice Medical Facility Anticipated Discharge Date: 12/30/17 Discharge Date: Expected LOS: 3 Initial Reviewer: [email or web address] Initial Review Date: 12/28/2017 Generated: 12/30/17 6:15 pm Comments DCP- Discharge Planning Updated by [email or web address]: Gualberto Manuel on 12/30/17 4:[address] Patient Name: MELANIE BARAJAS Encounter No: [id number] : 1930 Primary Insurance: MEDICARE A & B Anticipated DC Date: 12-30-2017 Planned Disposition: Hospice Medical Facility External Planned Provider: [facility] DCP follow-up note: CM SPOKE TO PT'S SPOUSE WHO ADVISED THEY HAVE DECIDED AND SIGNED LEGALS FOR INPATIENT HOSPICE WITH [facility]. SPOUSE DENIES FURHTER NEEDS. HOSPICE NURSE ASSISTING PT WITH ADMISSION. DONITA Ya DCP- Discharge Planning Updated by [email or web address]: Gualberto Manuel on 12/29/17 4:[address] Patient Name: MELANIE BARAJAS Admission Status: ER Accout number: [id number] Admission Date: 12-27-2017 : 1930 Admission Diagnosis: Attending: ILIR GARCIA Current LOS: 2 Anticipated DC Date: 12-29-2017 Planned Disposition: Nursing Facility [facility] Primary Insurance: MEDICARE A & B PLANNED EXTERNAL PROVIDER: [facility], [facility]SE [facility]PERATOR CARE MEDICAID BED Discharge Planning Comments: CM RECEIVED HOSPICE ORDER, MET WITH PT AND SPOUSE IN ROOM TO DISCUSS DISCHARGE PLANNING AND NEEDS. MELANIE BARAJAS provided verbal consent to discuss current and ongoing needs with/in the presence of: SPOUSE, MARYJO. PT REPORTS LIVING AT HOME INDEPENDENTLY WITH HIS . PT HAS HOME AND PORTABLE OXYGEN WELL WALKER FROM [facility] [employer] [facility] PAT[facility]. PT HAD NO OUTSIDE SERVICES ASSISTING IN THE HOME. CM DISCUSSED AVAILABILITY OF HOME HEALTH, REHAB SERVICES AND MEDICAL EQUIPMENT CM DISCUSSED HOSPICE ORDER. PT BECAME UPSET AND REPORTS HE IS NOT ABLE TO MAKE THAT DECISION AND HIS FAMILY WOULD HAVE TO DO THAT FOR HIM. PT ASKED CM TO NOT TALK ABOUT HOSPICE WITH HIM IT SCARES HIM. PT ASKED CM TO TALK TO HIS ABOUT ALL DISCHARGE PLANNING. PT'S SPOUSE REPORTS SHE WILL DISCUSS THIS WITH CM SHORTLY AFTER HER DAUGHER ARRIVES. CM PROVIDED HOSPICE INFORMATION WELL STATEWIDE LISTING OF PROVIDERS. SPOUSE IS CONSIDERING SENDING PT TO [facility] WITH HOSPICE, RETURN TO [facility] WITH HOSPICE OR INPATIENT HOSPICE. IMPORTANT MESSAGE FROM MEDICARE PROVIDED AND EXPLAINED. CM AND HOSPITAL PRODUCTION SUPPORT SPECIALIST INFORMATION PROVIDED. CM MET LATER WITH PT'S SPOUSE AND PT'S DAUGHTER OUTSIDE OF PT'S ROOM, DISCUSSED HOSPICE PROVIDERS, LOCATIONS FOR HOSPICE WELL PRISON PLACEMENT. PT'S SPOUSE IS NOT TAKING PT HOME. THEY HAVE DECIDED FOR INPATIENT EVALUATION BY [facility], HAVE CM CHECK WITH [facility] FOR WHAT IT MAY COSTS FOR PLACEMENT WELL SEND INFORMATION TO [facility] IN EVENT PT RETURNS THERE WITH COMFORT CARE. CM CALLED [facility], , SPOKE TO JANE WHO TOOK REFERRAL INFORMATION AND WILL SEND NURSE FOR HOSPICE EVALUATION SOON POSSIBLE. CM FAXED REFERRAL TO [facility] AT [phone]. CM CALLED [facility], , SPOKE TO OLIVIA WHO INFORMED CM THAT THEY CAN PROVIDE COMFORT CARE OR CONTRACT WITH [facility] OR [facility] FOR HOSPICE CARE, ROOM COSTS WOULD BE $182 SEMI PRIVATE AND $210 PER DAY FOR PRIVATE ROOM. CM FAXED UPDATE TO [facility] ATTENTION [facility] AT [phone]. CM WAITING HOSPICE EVALUATION BY [facility]. CM WAITING FAMILY DECISION REGARDING INPATIENT HOSPICE, RETURN TO [facility] FOR COMFORT CARE OR NEW PLACEMENT AT [facility] FOR SWITCH HOUSE OPERATOR CARE AND HOSPICE. Transport Conductor: Gualberto Manuel Appended by Gualberto Manuel on 12/29/2017 17:20 LIGHTING DESIGNER: CM SPOKE TO HORACE OF [facility], THEY HAVE EVALUATED PT AND PT IS APPROPRIATE FOR INPATIENT HOSPICE AND PT'S SPOUSE WANTS TO SPEAK TO HER SON JOHN BEFORE MAKING FURHTER DECISIONS. [facility] WILL ADMIT PT FOR INPATIENT HOSPICE IF THAT IS FAMILY DECISION. CM WAITING FAMILY DECISION REGARDING INPATIENT HOSPICE, RETURN TO [facility] FOR COMFORT CARE OR NEW PLACEMENT AT [facility] FOR ALF CARE AND HOSPICE. Transport Conductor: Gualberto Manuel NMPIA - Discharge Planning Initial Assessment Updated by [email or web address]: Gualberto Manuel on 12/29/17 3:30 pm * Is the patient Alert and Oriented? No * How many steps to enter\exit or inside your home? * PCP DR. MARCUS, [facility] IN [place] * Pharmacy [facility] [place] * Preadmission Environment Half-Way Facility * Facility Name [facility], [facility] * ADLs Partial Dependent * Partial ADLs (Assistance needed) Ambulation Bathing Dressing Medication Management Toileting Transfers * Equipment Other * Other Equipment ALL MEDICAL EQUIPMENT PROVIDED BY PRISON *PT HAS OXYGEN, HOME AND PORTABLE WELL WALKER FROM [facility]ALTH SYSTEM PATIENT AT HOME. * List name and contact numbers for known caregivers / representatives who currently or will assist patient after discharge: MARYJO BARAJAS, SPOUSE, * Verbal permission to speak to the caregivers and representatives has been obtained from the patient. Yes * Community resources currently utilized None * Please name any agencies selected above. NONE * Additional services required to return to the preadmission environment? Yes * Can the patient safely return to the preadmission environment? Yes * Has this patient been hospitalized within the prior 30 days at any hospital? No Coverage Notice Reviewer: [id number] - Gualberto Manuel Notice Issued Date-Time: 12/29/2017 11:45 Notice Type: IM Discharge Notice Notice Delivered To: Patient Relationship to Patient: Fountain Waitress/Waiter Name: Delivery Method: HAND - Hand Delivered Lacy Days: Prior Verbal Notification: Recipient Understood Notice: Yes Recipient Signature: Yes Med Rec Note Co-signed by Attending: Coverage Notice Comment: Last DP export: 12/29/17 4:25 Patient Name: MELANIE BARAJAS Page [id number] at 1715 All edits/amendments must be made on the electronic document DICTATION DATE: 12/30/171713 OFFICE MACHINE SERVICER APPRENTICE: RISHABH 12/30/171713 RPT#: [id number] NM DATE: STATUS: ADM IN [facility] [address] [place] [address] END OF REPORT
--- NOTE | ~2017-12-27 | MORECARE ---
CASE MANAGEMENT DISCHARGE SUMMARY PATIENT: MELANIE BARAJAS UNIT: [id number] ADM DATE: 12/27/17 AGE: 87 : [birth year] SEX: M ROOM/BED: D.2133 AUTHOR: MCKENZIE,DOC PHYSICIAN: REFERRING PHYSICIAN: SYDNEY GARCIA MD DATE OF SERVICE: 12/29/17 Discharge Plan Patient Name: MELANIE BARAJAS Facility: [facility]:[place] : 1930 Planned Disposition: Nursing Facility [facility] Cert Anticipated Discharge Date: 12/29/17 Discharge Date: Expected LOS: 2 Initial Reviewer: [email or web address] Initial Review Date: 12/28/2017 Generated: 12/29/17 4:53 pm Comments DCP- Discharge Planning Updated by [email or web address]: Gualberto Manuel on 12/29/17 2:[address] Patient Name: MELANIE BARAJAS Admission Status: ER Accout number: [id number] Admission Date: 12-27-2017 : 1930 Admission Diagnosis: Attending: ILIR GARCIA Current LOS: 2 Anticipated DC Date: 12-29-2017 Planned Disposition: Nursing Facility [facility] Cert Primary Insurance: MEDICARE A & B PLANNED EXTERNAL PROVIDER: [facility], [facility]AIL CARE MEDICAID BED Discharge Planning Comments: CM RECEIVED HOSPICE ORDER, MET WITH PT AND SPOUSE IN ROOM TO DISCUSS DISCHARGE PLANNING AND NEEDS. MELANIE BARAJAS provided verbal consent to discuss current and ongoing needs with/in the presence of: SPOUSE, MARYJO. PT REPORTS LIVING AT HOME INDEPENDENTLY WITH HIS . PT HAS HOME AND PORTABLE OXYGEN WELL WALKER FROM [employer] [facility] PATIENT. PT HAD NO OUTSIDE SERVICES ASSISTING IN THE HOME. CM DISCUSSED AVAILABILITY OF HOME HEALTH, REHAB SERVICES AND MEDICAL EQUIPMENT CM DISCUSSED HOSPICE ORDER. PT BECAME UPSET AND REPORTS HE IS NOT ABLE TO MAKE THAT DECISION AND HIS FAMILY WOULD HAVE TO DO THAT FOR HIM. PT ASKED CM TO NOT TALK ABOUT HOSPICE WITH HIM IT SCARES HIM. PT ASKED CM TO TALK TO HIS ABOUT ALL DISCHARGE PLANNING. PT'S SPOUSE REPORTS SHE WILL DISCUSS THIS WITH CM SHORTLY AFTER HER DAUGHER ARRIVES. CM PROVIDED HOSPICE INFORMATION WELL STATEWIDE LISTING OF PROVIDERS. SPOUSE IS CONSIDERING SENDING PT TO [facility] WITH HOSPICE, RETURN TO [facility] WITH HOSPICE OR INPATIENT HOSPICE. IMPORTANT MESSAGE FROM MEDICARE PROVIDED AND EXPLAINED. CM AND HOSPITAL SCIENCE ANALYST INFORMATION PROVIDED. CM MET LATER WITH PT'S SPOUSE AND PT'S DAUGHTER OUTSIDE OF PT'S ROOM, DISCUSSED HOSPICE PROVIDERS, LOCATIONS FOR HOSPICE WELL [facility] PLACEMENT. PT'S SPOUSE IS NOT TAKING PT HOME. THEY HAVE DECIDED FOR INPATIENT EVALUATION BY [facility], HAVE CM CHECK WITH [facility] FOR WHAT IT MAY COSTS FOR PLACEMENT WELL SEND INFORMATION TO [facility] IN EVENT PT RETURNS THERE WITH COMFORT CARE. CM CALLED [facility], , SPOKE TO JANE WHO TOOK REFERRAL INFORMATION AND WILL SEND NURSE FOR HOSPICE EVALUATION SOON POSSIBLE. CM FAXED REFERRAL TO [facility] AT [phone]. CM CALLED [facility], , SPOKE TO OLIVIA WHO INFORMED CM THAT THEY CAN PROVIDE COMFORT CARE OR CONTRACT WITH [facility] OR [facility] FOR HOSPICE CARE, ROOM COSTS WOULD BE $182 SEMI PRIVATE AND $210 PER DAY FOR PRIVATE ROOM. CM FAXED UPDATE TO [facility] ATTENTION [facility] AT [phone]. CM WAITING HOSPICE EVALUATION BY [facility]. CM WAITING FAMILY DECISION REGARDING INPATIENT HOSPICE, RETURN TO [facility] FOR COMFORT CARE OR NEW PLACEMENT AT [facility] FOR JAIL CARE AND HOSPICE. Woods Boss: [facility] - Discharge Planning Initial Assessment Updated by [email or web address]: Gualberto Manuel on 12/29/17 3:30 pm * Is the patient Alert and Oriented? No * How many steps to enter\exit or inside your home? * PCP DR. MARCUS, [facility] IN [place] * Pharmacy [facility] [place] * Preadmission Environment Correction Facility * Facility Name [facility], [facility] * ADLs Partial Dependent * Partial ADLs (Assistance needed) Ambulation Bathing Dressing Medication Management Toileting Transfers * Equipment Other * Other Equipment ALL MEDICAL EQUIPMENT PROVIDED BY [facility] *PT HAS OXYGEN, HOME AND PORTABLE WELL WALKER FROM [facility]IENT AT [facility]. * List name and contact numbers for known caregivers / representatives who currently or will assist patient after discharge: MARYJO BARAJAS, SPOUSE, * Verbal permission to speak to the caregivers and representatives has been obtained from the patient. Yes * Community resources currently utilized None * Please name any agencies selected above. NONE * Additional services required to return to the preadmission environment? Yes * Can the patient safely return to the preadmission environment? Yes * Has this patient been hospitalized within the prior 30 days at any hospital? No External Providers External Provider: [facility] Next Contact Date: 12/29/2017 Service Request Date: Service Type: Resolution: Reviewer: Comments: Coverage Notice Reviewer: [id number] Martine Manuel Notice Issued Date-Time: 12/29/2017 11:45 Notice Type: IM Discharge Notice Notice Delivered To: Patient Relationship to Patient: Electrolysis Investigator Name: Delivery Method: HAND - Hand Delivered Lacy Days: Prior Verbal Notification: Recipient Understood Notice: Yes Recipient Signature: Yes Med Rec Note Co-signed by Attending: Coverage Notice Comment: Last DP export: 12/29/17 2:31 Patient Name: MELANIE BARAJAS Page [phone] at 1553 All edits/amendments must be made on the electronic document DICTATION DATE: 12/29/17 1553 BLUEPRINTING AND PHOTOCOPY SUPERVISOR: RISHABH 12/29/17 1553 RPT#: [id number] DC DATE: STATUS: ADM IN [facility] [address] [place] [address] END OF REPORT
--- NOTE | ~2017-12-27 | MORECARE ---
CASE MANAGEMENT DISCHARGE SUMMARY PATIENT: MELANIE BARAJAS UNIT: [id number] ADM DATE: 12/27/17 AGE: 87 : [birth year] SEX: M ROOM/BED: D.2133 AUTHOR: MCKENZIE,DOC PHYSICIAN: REFERRING PHYSICIAN: SYDNEY GARCIA MD DATE OF SERVICE: 12/29/17 Discharge Plan Patient Name: MELANIE BARAJAS Facility: [facility]:[place] : 1930 Planned Disposition: Nursing Facility SHON Cert Anticipated Discharge Date: 12/29/17 Discharge Date: Expected LOS: 2 Initial Reviewer: [email or web address] Initial Review Date: 12/28/2017 Generated: 12/29/17 4:31 pm DCPIA - Discharge Planning Initial Assessment Updated by MILLY: Gualberto Manuel on 12/29/17 3:30 pm * Is the patient Alert and Oriented? No * How many steps to enter\exit or inside your home? * PCP DR. MARCUS, [facility] IN [place] * Pharmacy [facility] [place] * Preadmission Environment [facility] * Facility Name [facility] * ADLs Partial Dependent * Partial ADLs (Assistance needed) Ambulation Bathing Dressing Medication Management Toileting Transfers * Equipment Other * Other Equipment ALL MEDICAL EQUIPMENT PROVIDED BY RETIREMENT *PT HAS OXYGEN, HOME AND PORTABLE WELL WALKER FROM [facility] PATIENT AT HOME. * List name and contact numbers for known caregivers / representatives who currently or will assist patient after discharge: MARYJO BARAJAS, SPOUSE, * Verbal permission to speak to the caregivers and representatives has been obtained from the patient. Yes * Community resources currently utilized None * Please name any agencies selected above. NONE * Additional services required to return to the preadmission environment? Yes * Can the patient safely return to the preadmission environment? Yes * Has this patient been hospitalized within the prior 30 days at any hospital? No External Providers [facility] Next Contact Date: 12/29/2017 Service Request Date: Service Type: Resolution: Reviewer: Comments: Coverage Notice Reviewer: [id number] - Gualberto Manuel Notice Issued Date-Time: 12/29/2017 11:45 Notice Type: IM Discharge Notice Notice Delivered To: Patient Relationship to Patient: Teacher Name: Delivery Method: HAND - Hand Delivered Lacy Days: Prior Verbal Notification: Recipient Understood Notice: Yes Recipient Signature: Yes Med Rec Note Co-signed by Attending: Coverage Notice Comment: Patient Name: MELANIE BARAJAS Page [id number] at 1531 All edits/amendments must be made on the electronic document DICTATION DATE: 12/29/17 1531 MANNEQUIN MOUNTER: RISHABH 12/29/17 1531 RPT#: [id number] DC DATE: STATUS: ADM IN [facility] [address] [place] [address] END OF REPORT
--- NOTE | ~2017-12-27 | DS ---
PATIENT:MELANIE BARAJAS :[birth year] MEDICAL RECORD: [id number] DISCHARGE SUMMARY ADMISSION DATE: 12/27/17 DISCHARGE DATE: 12/31/17 DATE OF DISCHARGE: 12/30/2017 DIAGNOSES: 1. Congestive heart failure. 2. Chronic systolic dysfunction. 3. Dilated cardiomyopathy. 4. Coronary artery disease. 5. Atrial fibrillation. 6. Edema. 7. Shortness of breath. HOSPITAL COURSE: Dr. Myersultz presents with end-stage heart failure symptomatology. He was made a DNR. Family decided on hospice. He was accepted to hospice. Further care will be comfort care through hospice. TRANSINT:[id number] Voice Confirmation ID: [id number] DOCUMENT ID: [id number] SYDNEY GARCIA MD at 1925 CC: [id number] DICTATION DATE: 12/30/17 1532 SALES DEMONSTRATOR: 12/30/17 2201 DIS IN 12/31/17 [id number] [place] [address]
--- NOTE | ~2017-12-27 | HP ---
PATIENT: MELANIE BARAJAS MEDICAL RECORD: [id number] ACCOUNT: [id number] LOCATION:[address] : [birth year] ADMISSION DATE: 12/27/17 PCP: SYDNEY GARCIA MD HISTORY AND PHYSICAL EXAMINATION ADMITTING DIAGNOSES: 1. Congestive heart failure, chronic systolic dysfunction. 2. Dilated cardiomyopathy. 3. Shortness of breath, dyspnea on exertion. 4. Edema. 5. Coronary artery disease. 6. Atrial fibrillation. HISTORY OF PRESENT ILLNESS: Mr. Barajas is well known to us with a history of cardiomyopathy, now presents with end-stage cardiac failure. He is very edematous, very short of breath. We have discussed options with him. He wishes to be a DNR and the family as well, which is just a DNR comfort care only. We will admit him and start him on dobutamine. We will also start him on IV Lasix. Hopefully, this will help remove some of the fluid, make his breathing more comfortable. If he does survive in the acute setting, I would set him up for hospice care. TRANSINT:[id number] Voice Confirmation ID: [id number] DOCUMENT ID: [id number] SYDNEY GARCIA MD at 1138 CC: [id number] DICTATION DATE: 12/28/17 1023 STATION BAGGAGE PORTER: 12/28/17 1122 ADM IN [facility] [address] [place] [address]
--- NOTE | ~2017-12-27 | MORECARE ---
CASE MANAGEMENT DISCHARGE SUMMARY PATIENT: MELANIE BARAJAS UNIT: [id number] ADM DATE: 12/27/17 AGE: 87 : [birth year] SEX: M ROOM/BED: D.2133 AUTHOR: MCKENZIE,DOC PHYSICIAN: REFERRING PHYSICIAN: SYDNEY GARCIA MD DATE OF SERVICE: 12/29/17 Discharge Plan Patient Name: MELANIE BARAJAS Facility: [facility]:[place] : 1930 Planned Disposition: Nursing Facility SHON Cert Anticipated Discharge Date: 12/29/17 Discharge Date: Expected LOS: 2 Initial Reviewer: [id number] Initial Review Date: 12/28/2017 Generated: 12/29/17 6:25 pm Comments DCP- Discharge Planning Updated by [id number]: Gualberto Manuel on 12/29/17 4:[address] Patient Name: MELANIE BARAJAS Admission Status: ER Accout number: [id number] Admission Date: 12-27-2017 : 1930 Admission Diagnosis: Attending: ILIR GARCIA Current LOS: 2 Anticipated DC Date: 12-29-2017 Planned Disposition: Nursing Facility SHON Cert Primary Insurance: MEDICARE A & B PLANNED EXTERNAL PROVIDER: [facility], [facility] MEDICAID BED Discharge Planning Comments: CM RECEIVED HOSPICE ORDER, MET WITH PT AND SPOUSE IN ROOM TO DISCUSS DISCHARGE PLANNING AND NEEDS. MELANIE BARAJAS provided verbal consent to discuss current and ongoing needs with/in the presence of: SPOUSE, MARYJO. PT REPORTS LIVING AT HOME INDEPENDENTLY WITH HIS . PT HAS HOME AND PORTABLE OXYGEN WELL WALKER FROM [facility]. PT HAD NO OUTSIDE SERVICES ASSISTING IN THE HOME. CM DISCUSSED AVAILABILITY OF HOME HEALTH, REHAB SERVICES AND MEDICAL EQUIPMENT CM DISCUSSED HOSPICE ORDER. PT BECAME UPSET AND REPORTS HE IS NOT ABLE TO MAKE THAT DECISION AND HIS FAMILY WOULD HAVE TO DO THAT FOR HIM. PT ASKED CM TO NOT TALK ABOUT HOSPICE WITH HIM IT SCARES HIM. PT ASKED CM TO TALK TO HIS ABOUT ALL DISCHARGE PLANNING. PT'S SPOUSE REPORTS SHE WILL DISCUSS THIS WITH CM SHORTLY AFTER HER DAUGHER ARRIVES. CM PROVIDED HOSPICE INFORMATION WELL STATEWIDE LISTING OF PROVIDERS. SPOUSE IS CONSIDERING SENDING PT TO [facility] WITH HOSPICE, RETURN TO [facility] WITH HOSPICE OR INPATIENT HOSPICE. IMPORTANT MESSAGE FROM MEDICARE PROVIDED AND EXPLAINED. CM AND HOSPITAL CISCO UNIFIED COMMUNICATIONS ENGINEER INFORMATION PROVIDED. CM MET LATER WITH PT'S SPOUSE AND PT'S DAUGHTER OUTSIDE OF PT'S ROOM, DISCUSSED HOSPICE PROVIDERS, LOCATIONS FOR HOSPICE WELL [facility] PLACEMENT. PT'S SPOUSE IS NOT TAKING PT HOME. THEY HAVE DECIDED FOR INPATIENT EVALUATION BY [facility], HAVE CM CHECK WITH [facility] FOR WHAT IT MAY COSTS FOR PLACEMENT WELL SEND INFORMATION TO [facility] IN EVENT PT RETURNS THERE WITH COMFORT CARE. CM CALLED [facility], , SPOKE TO JANE WHO TOOK REFERRAL INFORMATION AND WILL SEND NURSE FOR HOSPICE EVALUATION SOON POSSIBLE. CM FAXED REFERRAL TO [facility] AT [phone]. CM CALLED [facility], , SPOKE TO OLIVIA WHO INFORMED CM THAT THEY CAN PROVIDE COMFORT CARE OR CONTRACT WITH [facility] OR [facility] FOR HOSPICE CARE, ROOM COSTS WOULD BE $182 SEMI PRIVATE AND $210 PER DAY FOR PRIVATE ROOM. CM FAXED UPDATE TO [facility] ATTENTION AYUSH AT [phone]. CM WAITING HOSPICE EVALUATION BY [facility]. CM WAITING FAMILY DECISION REGARDING INPATIENT HOSPICE, RETURN TO [facility] FOR COMFORT CARE OR NEW PLACEMENT AT [facility] FOR PENITENTIARY CARE AND HOSPICE. Button Riveter: Gualberto Manuel Appended by Gualberto Manuel on 12/29/2017 17:20 WOOD GETTER: CM SPOKE TO HORACE OF [facility], THEY HAVE EVALUATED PT AND PT IS APPROPRIATE FOR INPATIENT HOSPICE AND PT'S SPOUSE WANTS TO SPEAK TO HER SON JOHN BEFORE MAKING FURHTER DECISIONS. [facility] WILL ADMIT PT FOR INPATIENT HOSPICE IF THAT IS FAMILY DECISION. CM WAITING FAMILY DECISION REGARDING INPATIENT HOSPICE, RETURN TO [facility] FOR COMFORT CARE OR NEW PLACEMENT AT [facility] FOR [facility] AND HOSPICE. Button Riveter: Gualberto Manuel DCPIA - Discharge Planning Initial Assessment Updated by [id number]: Gualberto Manuel on 12/29/17 3:30 pm * Is the patient Alert and Oriented? No * How many steps to enter\exit or inside your home? * PCP DR. MARCUS, [facility] IN [place] * Pharmacy [facility] [place] * Preadmission Environment [facility] * Facility Name [facility], [place] * ADLs Partial Dependent * Partial ADLs (Assistance needed) Ambulation Bathing Dressing Medication Management Toileting Transfers * Equipment Other * Other Equipment ALL MEDICAL EQUIPMENT PROVIDED BY [facility] *PT HAS OXYGEN, HOME AND PORTABLE WELL WALKER FROM [facility] AT HOME. * List name and contact numbers for known caregivers / representatives who currently or will assist patient after discharge: MARYJO BARAJAS, SPOUSE, * Verbal permission to speak to the caregivers and representatives has been obtained from the patient. Yes * Community resources currently utilized None * Please name any agencies selected above. NONE * Additional services required to return to the preadmission environment? Yes * Can the patient safely return to the preadmission environment? Yes * Has this patient been hospitalized within the prior 30 days at any hospital? No Coverage Notice Reviewer: [id number] Martine Manuel Notice Issued Date-Time: 12/29/2017 11:45 Notice Type: IM Discharge Notice Notice Delivered To: Patient Relationship to Patient: Manager Icu Name: Delivery Method: HAND - Hand Delivered Lacy Days: Prior Verbal Notification: Recipient Understood Notice: Yes Recipient Signature: Yes Med Rec Note Co-signed by Attending: Coverage Notice Comment: Last DP export: 12/29/17 2:53 Patient Name: MELANIE BARAJAS Page [id number] at 1725 All edits/amendments must be made on the electronic document DICTATION DATE: 12/29/171724 VISUAL EFFECTS EDITOR: RISHABH 12/29/171724 RPT#: [id number] CT DATE: STATUS: ADM IN [facility] [address] [place] [address] END OF REPORT
[~2017-12-27 19:34] MED LIST changes: -BUMEX 1 MG TAB1 MG PO; +BUMEX2 MG PO; +FLAGYL500 MG PO
[2017-12-27 20:21] LABS: BASOPHILS 0.3 % (0-2); EOSINOPHILS 1.6 % (0-7); HEMATOCRIT 35.3 % (42.0-54.0); HEMOGLOBIN 11.4 g/dL (13.5-17.5); IMMATURE GRANULOCYTES 1.6 % (0-5); LYMPHOCYTES 8.7 % (15-50); MCH 26.1 pg (26.0-34.0); MCHC 32.3 g/dL (31.0-37.0); MEAN PLATELET VOLUME 8.8 fL (7.4-10.4); NEUTROPHILS 72.8 % (40-80); RBC 4.36 10x6/uL (4.20-6.10); WBC 7.7 10x3/uL (4.8-10.8)
[2017-12-27 20:28] LABS: PLATELET COUNT 174 10x3/uL (130-400)
[2017-12-27 20:50] LABS: ALKALINE PHOSPHATASE 129 U/L (46-116); ALT (SGPT) 21 U/L (10-68); BILIRUBIN - TOTAL 0.66 mg/dL (0.2-1.3); CALC OSMOLALITY 245 mosm/kg (275-300); CALCIUM 8.7 mg/dL (8.5-10.1); CARBON DIOXIDE 38.3 mmol/L (21.0-32.0); CREATINE KINASE 50 UL (21-232); CREATININE - SERUM 0.9 mg/dL (0.6-1.3); GLUCOSE 131 mg/dL (74-106); LIPASE 63 U/L (73-393); MAGNESIUM - SERUM 2.1 mg/dL (1.8-2.4); POTASSIUM - SERUM 4.4 mmol/L (3.5-5.1); PRO BNP 14627 pg/mL (0-450); PROTEIN - SERUM 7.4 g/dL (6.4-8.2); SODIUM 121 mmol/L (136-145); UREA NITROGEN 12 mg/dL (7-18); eGFR NON AFRICAN AMERICAN 84 mL/min (90-120)
[2017-12-27 20:59] LABS: CHLORIDE - SERUM 85 mmol/L (98-107); TROPONIN-I < 0.017 ng/mL (0.000-0.060)
[2017-12-27 23:19] VITALS: BP 133/54
[2017-12-27 23:29] VITALS: BP 133/64
[2017-12-28] VITALS (10 sets, daily range): BP systolic 103–130; BP diastolic 44–63; Ht 172.7 cm; Wt 72.6 kg
[2017-12-28 00:26] LABS: APPEARANCE CLEAR (CLEAR); BILIRUBIN NEGATIVE (NEGATIVE); COLOR YELLOW (YELLOW); GLUCOSE NEGATIVE (NEGATIVE); KETONE NEGATIVE (NEGATIVE); NITRITE NEGATIVE (NEGATIVE); PROTEIN NEGATIVE (NEGATIVE); UROBILINOGEN NORMAL (NORMAL)
[2017-12-28 00:27] LABS: BACTERIA FEW /hpf (NONE SEEN); EPITHELIAL CELLS 0-5 /hpf (0-5); RED CELLS - URINE 0-5 /hpf (0-5); WHITE CELLS - URINE 0-5 /hpf (0-5)
[2017-12-28] MEDS ORDERED: PAMELOR 25 MG C25 MG PO (01:04)
[2017-12-28] MEDS ORDERED: DEPAKOTE SPRIN125 MG PO (01:08)
[2017-12-28] MEDS ORDERED: AYR SALINE50 ML NS (01:10)
[2017-12-28] MEDS ORDERED: VITAMIN B-121000 MCG IM (01:16)
[2017-12-28] MEDS ORDERED: NASONEX NASAL S17 GM NS (01:19)
[2017-12-28] MEDS ORDERED: NU-IRON 150150 MG PO (01:20)
[2017-12-28] MEDS ORDERED: OCUVITE PO (01:25)
[2017-12-28] MEDS ORDERED: MYLANTA / MAALO30 ML PO (01:27)
[2017-12-28] MEDS ORDERED: MILK OF MAGNESI30 ML PO (01:28)
[2017-12-28] MEDS ORDERED: MIRALAX17 GM PO (01:28)
[2017-12-28] MEDS ORDERED: TUMS X-STR300 MG PO (01:29)
[2017-12-28] MEDS ORDERED: ACETAMINOPHEN500 M1 PO (01:29)
[2017-12-28] MEDS ORDERED: TYLENOL650 MG RC (01:30)
[2017-12-29 00:47] VITALS: BP 114/53
[2017-12-29 04:00] VITALS: BP 106/47
[2017-12-29 08:16] VITALS: BP 123/55
[2017-12-29 11:37] VITALS: BP 118/53
[2017-12-29 15:30] VITALS: BP 125/52
[2017-12-29 20:00] VITALS: BP 142/55
[2017-12-30] VITALS: BP 140/54
[2017-12-30 04:00] VITALS: BP 124/55
[2017-12-30 08:05] VITALS: BP 123/63
[2017-12-30 11:52] VITALS: BP 116/53
[2017-12-30 14:21] VITALS: BP 113/62
[2017-12-30 21:08] VITALS: BP 121/85
[2017-12-31] VITALS: BP 128/50
[2017-12-31 04:00] VITALS: BP 121/48
== END 2017-12-31 07:32 | disposition hospice, inpatient (51) | DRG 291 ==
LOC: D.ER 19:34 → D.M2 23:30
PROVIDERS: Family Medicine
DX: I11.0 Hypertensive heart disease with heart failure (principal); J96.90 Respiratory failure, unspecified, unspecified whether with hypoxia or hypercapnia; E87.1 Hypo-osmolality and hyponatremia; I50.84 End stage heart failure; I50.22 Chronic systolic (congestive) heart failure; I42.0 Dilated cardiomyopathy; I25.10 Atherosclerotic heart disease of native coronary artery without angina pectoris; I48.91 Unspecified atrial fibrillation; Z66 Do not resuscitate; Z51.5 Encounter for palliative care

== ENCOUNTER 2017-12-31 07:32 | Inpatient (IN) | payer OTHER ==
[~2017-12-31] VITALS: Ht 172.7 cm; Wt 70.5 kg
--- NOTE | ~2017-12-31 | MORECARE ---
CASE MANAGEMENT DISCHARGE SUMMARY PATIENT: MELANIE BARAJAS SALOMÓN UNIT: [id number] ADM DATE: 12/31/17 AGE: 87 : [birth year] SEX: M ROOM/BED: D.2133 AUTHOR: MARIA VICTORIA RINCON PHYSICIAN: REFERRING PHYSICIAN: TRACY CRANDALL MD DATE OF SERVICE: 01/02/18 Discharge Plan Patient Name: MELANIE BARAJAS Facility: [facility]:[place] : 1930 Planned Disposition: Anticipated Discharge Date: 12/31/17 Discharge Date: 01/01/2018 Expected LOS: 1 Initial Reviewer: [email or web address] Initial Review Date: 01/02/2018 Generated: 01/02/18 10:40 am Patient Name: MELANIE BARAJAS Page [id number] at 0940 All edits/amendments must be made on the electronic document DICTATION DATE: 01/02/18938 JET BLADE POLISHER: RISHABH 01/02/18938 RPT#: [id number] DC DATE:01/01/18 STATUS: DIS IN [facility] [address] [place] [address] END OF REPORT
[~2017-12-31 07:32] MED LIST changes: +ACETAMINOPHEN500 M1 PO; +AYR SALINE50 ML NS; +DEPAKOTE SPRIN125 MG PO; +MILK OF MAGNESI30 ML PO; +MIRALAX17 GM PO; +MYLANTA / MAALO30 ML PO; +NASONEX NASAL S17 GM NS; +NU-IRON 150150 MG PO; +OCUVITE PO; +PAMELOR 25 MG C25 MG PO; +TUMS X-STR300 MG PO; +TYLENOL650 MG RC; +VITAMIN B-121000 MCG IM
[2017-12-31 12:20] VITALS: Ht 172.7 cm; Wt 70.5 kg
[2017-12-31 20:00] VITALS: BP 85/31
== END 2018-01-01 01:15 | DRG 951 ==
LOC: D.M2 07:32
DX: Z51.5 Encounter for palliative care (principal)